=== PATIENT | female | born 1945 | race Caucasian/White ===

== ENCOUNTER → 2018-01-18 | Outpatient (CLI) | payer MEDICARE, OTHER ==
--- NOTE | 2018-01-18 14:38 | RADIOLOGY IMAGING REPORT ---
FACILITY: [facility] [place] PATIENT NAME: Nelly Chisholm : 1945 MR: [id number] V: [id number] EXAM DATE: ORDERING PHYSICIAN: BINH TUBBS TECHNOLOGIST: Location: [facility] Patient: Nelly Chisholm : 1945 Visit/Account:[id number] Date of Sevice: 01/18/2018 THYROID HISTORY: Thyroid nodules COMPARISON: None FINDINGS: SIZE: Normal. Right lobe: 4.6 x 2.1 x 2.1 cm Left lobe: 4.9 x 1.9 x 1.4 cm Isthmus: 6.5 mm PARENCHYMA: Homogeneous. NODULES: Right lobe: * In the mid to upper pole the right lobe there is a complex well-circumscribed 2 x 1.2 x 1.2 cm nod ule. * in the inferior right lobe is a solid well-circumscribed hypoechoic nodule measuring 7 mm in diam eter Left lobe: * Three subcentimeter nodules are identified in the mid to inferior pole the left lobe Isthmus: * There is a solid heterogeneous 2.5 x 1.8 x 0.8 cm hypervascular nodule along the left-sided isthmu s VASCULARITY: Within normal limits. ADDITIONAL FINDINGS: None. IMPRESSION: In the mid to upper pole the right lobe there is a 2 cm complex nodule for which ultrasound-guided fi ne-needle aspiration is recommended Left-sided isthmus there is a 2.5 cm hypervascular complex nodule for which ultrasound-guided needle aspiration is recommended REFERENCE: 2015 [place] [employer] Management Guidelines for Adult Patients with Thyroid Nodules and D ifferentiated Thyroid Cancer: The [place] [employer] Guidelines Task Force on Thyroid Nodul es and Differentiated Thyroid Cancer. SONOGRAPHIC PATTERNS: * Benign: Purely cystic nodules (no solid component); estimated risk of malignancy <1 percent; no bi opsy recommended. * Very Low Suspicion: Spongiform or partially cystic nodules without any of the sonographic features described in low, intermediate, or high suspicion patterns; estimated risk of malignancy <3 percent; consider FNA at > 2 cm (Observation without FNA is also a reasonable option). * Low Suspicion: Isoechoic or hyperechoic solid nodule, or partially cystic nodule with eccentric so lid areas, without microcalcification, irregular margin or ETE (extra-thyroidal extension), or taller than wide shape; estimated risk of malignancy 5-10 percent; recommend FNA at >1.5 cm. * Intermediate Suspicion: Hypoechoic solid nodule with smooth margins without microcalcifications, E TE (extra-thyroidal extension), or taller than wide shape; estimated risk of malignancy 10-20 percent ; recommend FNA at > 1 cm. * High Suspicion: Solid hypoechoic nodule or solid hypoechoic component of a partially cystic nodule with one or more of the following features: irregular margins (infiltrative, microlobulated), microc alcifications, taller than wide shape, rim calcifications with small extrusive soft tissue component, evidence of ETE (extra-thyroidal extension); estimated risk of malignancy >70-90 percent; recommend FNA at > 1 cm. NOTES: * Although a sonographically suspicious subcentimeter thyroid nodule without evidence of extrathyroi evert extension or sonographically suspicious lymph nodes may be observed with close sonographic follow -up rather than pursuing immediate FNA, patient age and preference may modify decision-making. A > 50% interval increase in nodule volume and/or development of new suspicious sonographic features are felt to be a valid reasons for potential re-aspiration of a nodule previously shown to have benig n FNA cytology. Report Dictated By: Carmen Vivas MD at 01/18/2018 2:31 PM Report E-Signed By: Carmen Vivas MD at 01/18/2018 2:35 PM WSN:[email or web address]
== END ==
LOC: US 01:29
PROVIDERS: ATTEND Family Medicine
DX: E04.1 Nontoxic single thyroid nodule (principal)
CPT/HCPCS: 76536

== ENCOUNTER → 2018-01-29 | Outpatient (CLI) | payer MEDICARE, OTHER ==
[~2018-01-29] MED LIST: CALC-852 PO; CELE-1 PO; CHOL10005 PO; CLON-388 PO; CRAN200C5 PO; DOXE10CA25 PO; FAMO20TA28 PO; METH-284 PO; OXYC-373 PO; TRAM-420 PO; VALS160T22 PO; VALS1TAB67 PO
[2018-01-29 14:33] LABS: PLATELET COUNT, AUTOMATED 207 K/uL (150-450)
== END ==
LOC: LAB 14:04
PROVIDERS: ATTEND Internal Medicine
DX: I10 Essential (primary) hypertension (principal); G89.29 Other chronic pain; G47.9 Sleep disorder, unspecified; E05.90 Thyrotoxicosis, unspecified without thyrotoxic crisis or storm; R79.89 Other specified abnormal findings of blood chemistry
CPT/HCPCS: 36415; 81001; 82040; 82150; 82247; 82310; 82374; 82435; 82565; 82607; 82728; 82746; 82947; 83540; 83550; 83690; 83970; 84075; 84132; 84155; 84295; 84432; 84439; 84443; 84445; 84450; 84460; 84481; 84520; 84550; 85025; 85651; 86677; 86800

== ENCOUNTER → 2018-02-02 | Outpatient (CLI) | payer MEDICARE, OTHER ==
[~2018-02-02] MED LIST changes: -METH-284 PO
== END ==
LOC: LAB 11:11
PROVIDERS: ATTEND Internal Medicine
DX: I10 Essential (primary) hypertension (principal); E05.90 Thyrotoxicosis, unspecified without thyrotoxic crisis or storm; R10.9 Unspecified abdominal pain
CPT/HCPCS: 81001

== ENCOUNTER 2018-02-06 14:55 | Outpatient (RCR) | payer MEDICARE, OTHER ==
--- NOTE | 2018-02-07 14:02 | RADIOLOGY IMAGING REPORT ---
FACILITY: [facility] PATIENT NAME: Nelly Chisholm : 1945 MR: [id number] V: [id number] EXAM DATE: ORDERING PHYSICIAN: GRACIE QUEVEDO TECHNOLOGIST: Location: [facility] [place] Patient: Nelly Chisholm : 1945 Visit/Account:[id number] Date of Sevice: 02/06/2018 Nuclear thyroid uptake and scan. HISTORY: Hyperthyroid. COMPARISON: Thyroid ultrasound 01/18/2018. 367 uCi I-123 was administered by mouth on 02/06/2018. Images of the thyroid were obtained. Thyroid uptake was calculated at 6 hours and 24 hours. FINDINGS: Focal areas of increased activity are present in the region of the upper pole of the right thyroid lo be and the lower pole of the left thyroid lobe. Six hour uptake is 22.3%. 24-hour uptake is 42.5% w hich is increased compared to the normal range of 10-30%. IMPRESSION: Hyperfunctioning nodules in the right and left thyroid lobes. Report Dictated By: Jamel Awad MD at 02/07/2018 1:51 PM Report E-Signed By: Jamel Awad MD at 02/07/2018 1:59 PM WSN:[email or web address]
[2018-02-15] MEDS ORDERED: METH-284 PO (15:05)
[2018-02-15] MEDS ORDERED: CELE-1 PO (15:05)
== END 2018-02-06 18:00 | disposition home or self-care (01) ==
LOC: NUC 14:55
PROVIDERS: ATTEND Internal Medicine
DX: E05.90 Thyrotoxicosis, unspecified without thyrotoxic crisis or storm (principal)
CPT/HCPCS: 78014; A9516

== ENCOUNTER → 2018-02-15 | Outpatient (CLI) | payer MEDICARE, OTHER ==
[~2018-02-15] MED LIST changes: +METH-284 PO
--- NOTE | 2018-02-15 16:24 | EKG ---
FACILITY: [facility] [place] PATIENT NAME: NGOC CARRILLO : [id number] MR: [id number] V: [id number] EXAM DATE: ORDERING PHYSICIAN: GRACIE QUEVEDO TECHNOLOGIST: MICHELLE Test Reason : TACHYCARDIA Blood Pressure : / mmHG Vent. Rate : 077 BPM Atrial Rate : 077 BPM P-R Int : 142 ms QRS Dur : 082 ms QT Int : 358 ms P-R-T Axes : 063 074 069 degrees QTc Int : 405 ms Normal sinus rhythm Normal ECG No previous ECGs available Referred By: MD QUEVEDO Confirmed By:
== END ==
LOC: RESP 15:53
PROVIDERS: ATTEND Internal Medicine
DX: Z02.9 Encounter for administrative examinations, unspecified (principal)

== ENCOUNTER → 2018-03-05 | Outpatient (CLI) | payer MEDICARE, OTHER ==
[2018-03-05 10:18] LABS: PLATELET COUNT, AUTOMATED 231 K/uL (150-450)
== END ==
LOC: LAB 09:39
PROVIDERS: ATTEND Internal Medicine
DX: I10 Essential (primary) hypertension (principal); E05.90 Thyrotoxicosis, unspecified without thyrotoxic crisis or storm; R63.4 Abnormal weight loss; R79.89 Other specified abnormal findings of blood chemistry
CPT/HCPCS: 36415; 82040; 82247; 82310; 82374; 82435; 82565; 82728; 82947; 83540; 83550; 84075; 84132; 84155; 84295; 84439; 84443; 84450; 84460; 84481; 84520; 85025

== ENCOUNTER 2018-03-13 12:42 | Outpatient (RCR) | payer MEDICARE, OTHER ==
[2018-02-02 13:29] VITALS: BP 126/68
--- NOTE | 2018-02-02 19:54 | ONCOLOGY CONSULTATION ---
EVENT DATE: 2017 REFERRING PHYSICIAN Dewayne Matias MD REASON FOR CONSULTATION Evaluation and management of iron overload. HISTORY OF PRESENT ILLNESS Patient is a 72-year-old female who presented with abdominal pain, decreased appetite and feeling unwell, accompanied by 10-15 pounds of weight loss for the last two to three months. She underwent EGD on January 02, 2018 which was unremarkable. She was evaluated at the emergency room in [place], [place] on December 18, 2017 because of similar complaints and chronic back pain. During her evaluation by her primary care physician in [facility], Dr. De Los Santos, and in [place] the patient was found to have high iron. On May 03, 2017 her ferritin was 569, TIBC was 260, iron was 127 and iron saturation 49%. On October 23, 2017, her serum iron was 102, TIBC was 259, iron saturation 39% and ferritin was 384. Her ferritin on January 17, 2018 was 1038 while her ferritin on January 23, 2018 was 1054. Her iron studies on January 29, 2018 showed serum iron of 34 which is low, TIBC is low at 248, iron saturation was 13.7% and ferritin was 629. 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 She was also found to have decreased TSH at 0.021, slightly elevated elevated T4 and T3, so she subsequently underwent an ultrasound of the thyroid gland which showed a 2 cm complex nodule in the right lobe, and 2.5 cm hypervascular complex nodule in the left-sided isthmus. PAST MEDICAL HISTORY 1. Thyroid nodule. 2. Hepatitis as a child. 3. Hyperlipidemia. 4. Hypertension. 5. COPD. 6. Fibromyalgia. 7. Osteoporosis. 8. Anxiety. PAST SURGICAL HISTORY 1. TMJ surgery complicated with staph infection for some time. 2. Appendectomy. 3. Left wrist surgery. 4. Kyphoplasty. 5. Tonsillectomy. 6. Hysterectomy. 7. Skin cancer removal. FAMILY HISTORY Negative for cancer, but her brother had history of iron overload and he as receiving phlebotomies. 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 She drinks socially. Denies any abuse of illicit drugs. CURRENT MEDICATIONS 1. Valsartan 160 mg daily. 2. Oxycodone/APAP 5/325 one tablet q.6 hourly p.r.n. 3. Calcium carbonate, vitamin D3 one tablet each. 4. Cranberry extract. 5. Vitamin D3 1000 units tablet two tablets daily. 6. Pepcid 20 mg orally daily. 7. Clonazepam 0.5 mg twice daily. 8. Tramadol 50 mg q.8 hourly p.r.n. for pain. ALLERGIES 1. AMOXICILLIN. 2. CEPHALOSPORINS. 3. SULFA which causes skin blisters. 4. NITROFURANTOIN caused also allergy. 5. CODEINE causing allergy. REVIEW OF SYSTEMS CONSTITUTIONAL: No fever. She has chills, sweating and loss of appetite. No recent infection. HEENT: Ears: No tinnitus or hearing problem. Nose: No nasal discharge or epistaxis. Throat: No sore throat or mouth ulcers. Eyes: No diplopia or visual changes. RESPIRATORY: She has shortness of breath. No cough, expectoration or hemoptysis. CARDIOVASCULAR: No chest pain, orthopnea, or paroxysmal nocturnal dyspnea (PND) . No edema. No palpitations. GASTROINTESTINAL: She has nausea. No vomiting. No diarrhea or constipation. No change in bowel movements. No heartburn or swallowing difficulties. She has left-sided abdominal pain and epigastric pain. No jaundice. No hematemesis , melena or rectal bleeding. GENITOURINARY: No hematuria or dysuria. MUSCULOSKELETAL: She has osteoporosis and fibromyalgia with generalized bone pains. NEUROLOGICAL: No tingling or numbness in the hands or feet. She has headache. No convulsions. HEMATOLOGIC/LYMPHATIC: No bleeding or easy bruising. She is weak, tired and fatigued. No enlarged lymph nodes. SKIN: No skin rash or lumps. PSYCHIATRIC: No anxiety or depression. PHYSICAL EXAMINATION GENERAL: Looks stable. Well-developed, well-nourished, and in no acute distress. VITAL SIGNS: Blood pressure 126/68, pulse 84 per minute, respirations 16 per minute, temperature 97.8, pulse ox 95% on room air. HEENT: Head: Atraumatic. No sinus tenderness to palpation. Eyes: No icterus or conjunctivitis. Mouth and Throat: No oral thrush or mucositis. NECK: Supple. No cervical or supraclavicular lymphadenopathy. LUNGS: Clear to auscultation and percussion bilaterally. HEART: Regular rate and rhythm. No gallops, murmurs, clicks or rubs. ABDOMEN: Soft and lax. No tenderness. No hepatosplenomegaly. No masses. EXTREMITIES: No cyanosis, clubbing or edema. LYMPHATICS: No peripheral lymphadenopathy. NEUROLOGICAL: Conscious, alert and oriented times three. No focal motor or sensory deficits. PSYCHIATRIC: Mood and affect appear normal. SKIN: No skin rash, bruise or purpuric eruption. ASSESSMENT 1. Iron overload. Looks like it is due to an underlying inflammatory condition given that her last iron studies on January 29, 2018 showed low serum iron at 34, low TIBC at 248, iron saturation 13.7 and ferritin was 629. If the patient will have iron overload from hemochromatosis I am expecting her serum iron will be high. With her complex thyroid nodules, I am planning to proceed with ultrasound-guided biopsy of the two nodules in her thyroid gland to be sure the patient does not have a malignant underlying disease which could explain the underlying inflammatory condition, despite the fact she may have multinodular goiter with hypothyroidism as per thyroid investigation done in [place]. I talked to the patient and her regarding that. They are agreeable to proceed with ultrasound biopsy for further evaluation. If the patient will not prove to have malignancy requiring treatment with surgical resection, I am consider phlebotomy in the future to deplete her high ferritin. 2. Thyroid nodules. I am planning to proceed with ultrasound-guided biopsy of the two nodules, the one in the right lobe and the one in the left side isthmus. Further evaluation and management will depend on the results of that test. 3. Fibromyalgia. 4. Osteoporosis. 5. Hypertension on Diovan. PLAN 1. Ultrasonographic-guided biopsy of the two thyroid nodules. 2. Patient to return after the above for further evaluation and management. 3. Consider phlebotomy for the iron overload. 4. Patient to contact us for any new concern or complaints. AKANKSHAD
[2018-02-07 08:51] VITALS: BP 131/76
[2018-02-07 09:08] LABS: INR 1.07
--- NOTE | 2018-02-08 12:11 | RADIOLOGY IMAGING REPORT ---
[facility] PATIENT NAME: Nelly Chisholm : 1945 MR: [id number] V: [id number] EXAM DATE: ORDERING PHYSICIAN: JENNIFER ARMSTRONG TECHNOLOGIST: Location: [facility] [place] Patient: Nelly Chisholm : 1945 Visit/Account:[id number] Date of Sevice: 02/08/2018 Exam: Ultrasound guided thyroid biopsy. Indication: 2 indeterminate nodules in the thyroid, with 1 right side of the isthmus, and the other i n the right thyroid lobe. Comparison: Thyroid ultrasound 01/18/2018. Findings: Prior to the exam, risks and benefits of a 2 thyroid nodule biopsies were discussed and inf ormed consent was obtained. Patient was placed supine on the gurney and the neck was prepped and drap ed in normal sterile fashion. 1% buffered lidocaine was locally injected for analgesia. Using ultrasound guidance, 25-gauge needle was used for 4 FNA samples in both nodules.. There were no immediate post procedure complications and the patient tolerated the procedure. Impression: Ultrasound-guided fine-needle aspiration of 2 thyroid nodules. Report Dictated By: Ronnell Calderón at 02/08/2018 12:07 PM Report E-Signed By: Ronnell Calderón at 02/08/2018 12:08 PM WSN:[email or web address]
[2018-02-09 13:59] VITALS: BP 118/70
--- NOTE | 2018-02-09 19:09 | ONCOLOGY FOLLOW UP NOTE ---
EVENT DATE: February 09, 2018 DIAGNOSES 1. Iron overload. 2. Thyroid nodules with nodular goiter. 3. Fibromyalgia. 4. Osteoporosis. 5. Hypertension. CHIEF COMPLAINT Patient is here today for followup of her iron overload. HEMATOLOGY/ONCOLOGY HISTORY Patient is a 72-year-old female who presented with abdominal pain, decreased appetite and feeling unwell, accompanied by 10-15 pounds of weight loss for the last two to three months. She underwent EGD on January 02, 2018 which was unremarkable. She was evaluated at the emergency room in [place], [place] on December 18, 2017 because of similar complaints and chronic back pain. During her evaluation by her primary care physician in [facility], Dr. De Los Santos, and in [place] the patient was found to have high iron. On May 03, 2017 her ferritin was 569, TIBC was 260, iron was 127 and iron saturation 49%. On October 23, 2017, her serum iron was 102, TIBC was 259, iron saturation 39% and ferritin was 384. Her ferritin on January 17, 2018 was 1038 while her ferritin on January 23, 2018 was 1054. Her iron studies on January 29, 2018 showed serum iron of 34 which is low, TIBC is low at 248, iron saturation was 13.7% and ferritin was 629. 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 She was also found to have decreased TSH at 0.021, slightly elevated elevated T4 and T3, so she subsequently underwent an ultrasound of the thyroid gland which showed a 2 cm complex nodule in the right lobe, and 2.5 cm hypervascular complex nodule in the left-sided isthmus. Patient has had left thyroid, left isthmus biopsy and cytology and right superior thyroid cytology done on February 07, 2018, and the pathology came negative for malignancy, but consistent with a nodular goiter. HISTORY OF PRESENT ILLNESS Patient is here today for followup of her iron overload. Her appetite is better this week than last week. She is short winded. She has nausea. She has generalized joint pains. She has occasional headache. She is weak, tired and fatigued. PAST MEDICAL HISTORY 1. Thyroid nodule. 2. Hepatitis as a child. 3. Hyperlipidemia. 4. Hypertension. 5. COPD. 6. Fibromyalgia. 7. Osteoporosis. 8. Anxiety. PAST SURGICAL HISTORY 1. TMJ surgery complicated with staph infection for some time. 2. Appendectomy. 3. Left wrist surgery. 4. Kyphoplasty. 5. Tonsillectomy. 6. Hysterectomy. 7. Skin cancer removal. FAMILY HISTORY Negative for cancer, but her brother had history of iron overload and he as receiving phlebotomies. 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 She drinks socially. Denies any abuse of illicit drugs. CURRENT MEDICATIONS 1. Valsartan 160 mg daily. 2. Oxycodone/APAP 5/325 one tablet q.6 hourly p.r.n. 3. Calcium carbonate, vitamin D3 one tablet each. 4. Cranberry extract. 5. Vitamin D3 1000 units tablet two tablets daily. 6. Pepcid 20 mg orally daily. 7. Clonazepam 0.5 mg twice daily. 8. Tramadol 50 mg q.8 hourly p.r.n. for pain. ALLERGIES 1. AMOXICILLIN. 2. CEPHALOSPORINS. 3. SULFA which causes skin blisters. 4. NITROFURANTOIN caused also allergy. 5. CODEINE causing allergy. REVIEW OF SYSTEMS CONSTITUTIONAL: Her loss of appetite is getting better. HEENT: Ears: No tinnitus or hearing problem. Nose: No nasal discharge or epistaxis. Throat: No sore throat or mouth ulcers. Eyes: No diplopia or visual changes. RESPIRATORY: She has exertional shortness of breath. No cough, expectoration or hemoptysis. CARDIOVASCULAR: No chest pain, orthopnea, or paroxysmal nocturnal dyspnea (PND) . No edema. No palpitations. GASTROINTESTINAL: She has occasional nausea. No vomiting. No diarrhea or constipation. No change in bowel movements. No heartburn or swallowing difficulties. She has left-sided abdominal pain and epigastric pain. No jaundice. No hematemesis, melena or rectal bleeding. GENITOURINARY: No hematuria or dysuria. MUSCULOSKELETAL: She has generalized pain due to arthritis. NEUROLOGICAL: No tingling or numbness in the hands or feet. She has occasional headache. No convulsions. HEMATOLOGIC/LYMPHATIC: No bleeding or easy bruising. She is weak and fatigued. No enlarged lymph nodes. SKIN: No skin rash or lumps. PSYCHIATRIC: No anxiety or depression. PHYSICAL EXAMINATION GENERAL: Looks stable. Well-developed, well-nourished, and in no acute distress. VITAL SIGNS: Blood pressure 118/70, pulse 82 per minute, respirations 16 per minute, temperature 97.1, pulse ox 91% on room air. HEENT: Head: Atraumatic. No sinus tenderness to palpation. Eyes: No icterus or conjunctivitis. Mouth and Throat: No oral thrush or mucositis. NECK: Supple. No cervical or supraclavicular lymphadenopathy. LUNGS: Clear to auscultation and percussion bilaterally. HEART: Regular rate and rhythm. No gallops, murmurs, clicks or rubs. ABDOMEN: Soft and lax. No tenderness. No hepatosplenomegaly. No masses. EXTREMITIES: No cyanosis, clubbing or edema. LYMPHATICS: No peripheral lymphadenopathy. NEUROLOGICAL: Conscious, alert and oriented times three. No focal motor or sensory deficits. PSYCHIATRIC: Mood and affect appear normal. SKIN: No skin rash, bruise or purpuric eruption. DIAGNOSTIC DATA Biopsy and cytology of the left thyroid, left isthmus and right superior thyroid cytology done on February 07, 2018 was negative for malignancy and consistent with nodular goiter. ASSESSMENT 1. Iron overload likely due to underlying inflammatory condition. Her iron studies done January 29, 2018 showed serum iron 34, TIBC 248, iron saturation 13.7% and ferritin 629. With her complex thyroid nodules patient had ultrasound- guided biopsy of the right thyroid nodule and left thyroid isthmus, and the cytology came back negative for malignancy, but was consistent with nodular goiter. It seems from her iron studies that hemochromatosis is unlikely. I am planning to do two phlebotomy sessions, and I am planning to see her in a month from now with repeat iron studies and CBC at that time. 2. Thyroid nodules due to nodular goiter as per cytology by ultrasound-guided biopsy of the thyroid nodules done on February 07, 2018. 3. Fibromyalgia. 4. Osteoporosis. 5. Hypertension on Diovan. PLAN 1. Phlebotomize 350 to 500 mL of blood q.2 weeks. 2. Patient to return in one month with CBC, iron studies with ferritin. 3. Patient to contact us for any new concern or complaints. [facility]
[2018-02-27 11:11] VITALS: BP 134/60
[2018-02-27 11:17] LABS: PLATELET COUNT, AUTOMATED 243 K/uL (150-450)
[2018-02-27 11:56] VITALS: BP 126/97
[2018-03-12 13:55] LABS: PLATELET COUNT, AUTOMATED 243 K/uL (150-450)
[2018-03-12 14:00] VITALS: BP 121/86
[~2018-03-13 12:42] MED LIST changes: +ESCI10TA8 PO; +MIRT-1 PO; +PANT40TA65 PO
--- NOTE | 2018-03-13 17:45 | Oncology Note ---
Nelly Adamson is a Patient is a 72-year-old female who has history of Iron overload and Thyroid nodules.. Thyroid nodules. 3. Fibromyalgia. 4. Osteoporosis. 5. Hypertension on Diovan. Patient was last seen by Dr. Moe Simmons on January 2018 she had workup Labs drawn on 03/12/2018 she was supposed to come today for therapeutic phlebotomy if clinically indicated total ferritin Diagnostic Labs on 02/09/2018 reveal. WBC 5.5, hemoglobin 14.8, hematocrit 43.5 , platelet count 243, ANC 3.2, CMP, are totally normal FERRITIN LAB VALUES -01/29/18 629 -03/05/18 254 - 02/2518 207 I spoke to patient's Mr. Tom over phone telephone number [phone] where informed that ferritin levels were within therapeutic limits and no clinical indication for therapeutic phlebotomy. Patient and were informed to follow-up on April 08, 2018 approximately the same time that you have an appointment PCP Patient to f/u in 4 weeks for CMP, CBC, ferritin, and aim at same Day labs and treatment if clinically indicated. Belkis Mcnair facilitate appointment. BRENDA GARCIA RN [facility], ONC Mar 13, 2018 17:45
[2018-03-15] MEDS ORDERED: DOXE10CA25 PO (15:12)
[2018-03-17] MEDS ORDERED: SUCCINYLCHOL CHL 200MG/10ML VL ONE (10:09)
[2018-03-17] MEDS ORDERED: PROPOFOL EMUL(*) 10MG/ML 20 ML 0 ML ONE (10:09)
[2018-03-17] MEDS ORDERED: PROPOFOL EMUL(*) 10MG/ML 20 ML 40 ML ONE (10:46)
[2018-03-17] MEDS ORDERED: DEXAMETHASONE SOD 4 MG/ML VIAL ONE (11:00)
[2018-03-17] MEDS ORDERED: ONDANSETRON 4 MG/2 ML VIAL ONE (11:05)
[2018-03-20] MEDS ORDERED: SUCR1TAB51 PO (10:32)
[2018-03-20] MEDS ORDERED: PANT40TA65 PO (10:32)
[2018-03-20] MEDS ORDERED: CLON-331 PO (10:44)
[2018-03-30] MEDS ORDERED: PANT40TA65 PO (12:59)
[2018-04-02] MEDS ORDERED: SUCR1TAB51 PO (11:27)
[2018-04-05] MEDS ORDERED: LOSA100T67 PO (16:54)
[2018-04-11] MEDS ORDERED: CLON-331 PO (14:15)
[2018-04-11] MEDS ORDERED: TRAM-420 PO (14:15)
== END 2018-04-12 13:48 | disposition home or self-care (01) ==
LOC: ONC 12:42
PROVIDERS: ATTEND Internal Medicine Hematology
DX: E83.10 Disorder of iron metabolism, unspecified (principal); E04.2 Nontoxic multinodular goiter; M79.7 Fibromyalgia; M81.0 Age-related osteoporosis without current pathological fracture; I10 Essential (primary) hypertension; Z87.891 Personal history of nicotine dependence; R11.0 Nausea; R06.02 Shortness of breath; R10.13 Epigastric pain; R53.1 Weakness; R53.83 Other fatigue
CPT/HCPCS: 36415; 76942; 82728; 83540; 83550; 85025; 85610; 85730; 88104; 88172; 99195; G0463; 10022; 81001; 99202; 99212; J0330; J1100; J2405; J2704

== ENCOUNTER → 2018-03-14 | Outpatient (CLI) | payer MEDICARE, OTHER ==
[~2018-03-14] MED LIST changes: +BARIUM SULFATE 148 GM POWDER ONE; +BARIUM SULFATE 176 GM BTL PO ONE; +BARIUM SULFATE 240 ML ORAL SUS (NECTAR) ONE; +BARIUM SULFATE 340 GM POWD ONE
--- NOTE | 2018-03-14 16:02 | RADIOLOGY IMAGING REPORT ---
FACILITY: [facility] [place] PATIENT NAME: Nelly Chisholm : 1945 MR: [id number] V: [id number] EXAM DATE: ORDERING PHYSICIAN: GRACIE QUEVEDO TECHNOLOGIST: Location: [facility] Patient: Nelly Chisholm : 1945 Visit/Account:[id number] Date of Sevice: 03/14/2018 Exam type: UPPER GI W/SMALL BOWEL SERIES History: Dysphasia, nausea, appetite changes Comparison: None. Findings: Double contrast upper GI series was performed with thick and thin barium and air contrast. No signif icant gastroesophageal reflux was observed. There was however a high-grade narrowing in the distal e sophagus with failure of passage of a 12 mm barium tablet. The stomach duodenal bulb and duodenal C- loop appeared unremarkable. Barium was followed throughout the small bowel to the terminal ileum. T ransit time to the colon was three hours and 15 minutes. No definite mucosal abnormality of the smal l bowel or terminal ileum was identified there is no evidence of bowel dilatation the fluoroscopy dos e area product was 824.88 micro-Tobias per meter squared IMPRESSION: 1. High-grade narrowing at the distal esophagus with failure of passage of a 12 mm barium tablet. Small bowel appear grossly unremarkable transit time to the colon of three hours and 15 minutes Report Dictated By: Carmen Vivas MD at 03/14/2018 3:53 PM Report E-Signed By: Carmen Vivas MD at 03/14/2018 4:00 PM WSN:[email or web address]
== END ==
LOC: RAD 01:29
PROVIDERS: ATTEND Internal Medicine
DX: R13.19 Other dysphagia (principal)
CPT/HCPCS: 74245

== ENCOUNTER 2018-03-17 06:43 | Inpatient (IN) | payer MEDICARE, OTHER ==
[~2018-03-17] VITALS: Ht 160 cm; Wt 44.9 kg
[2018-03-17] VITALS (13 sets, daily range): BP systolic 119–177; BP diastolic 66–103
[~2018-03-17 06:43] MED LIST changes: -CLON-298 PO; -SUCR1TAB51 PO
[2018-03-17] MEDS ORDERED: EMS NS 0.9%(*) 1000 ML BAG 1,000 ML IV ONE (07:05)
--- NOTE | 2018-03-17 07:08 | ER Report ---
History and Physical Time Seen By MD: 07:08 Hx. of Stated Complaint: nausea, weak, new diagnosis of hypothyroid, narrow esoph HPI/ROS CHIEF COMPLAINT: Weakness; weight loss HISTORY OF PRESENT ILLNESS: Patient is a 72-year-old female who lives in [place] during where time has returned to [place] for the summer. The past few months she's been experiencing symptoms of early satiety and nausea without emesis. She states decreased appetite and since November or December has lost approximately 17 pounds. Patient states that when she eats, she feels as if she can't swallow . Further she gets instantly nauseous and wants to throw up but does not. Patient actually was seen multiple times in the emergency department in [place] for similar symptoms. She had an endoscopy that was reportedly "negative". She also had CT scan of the abdomen and pelvis which also was reported to be unremarkable. She followed up with Dr. Michel . Nani. She was found to have a slightly elevated ferritin levels which she required phlebotomy 4. She is being followed by oncology. Further she was found to have hyperthyroidism and is currently taking methimazole last dose was last evening. She had an upper GI that was performed on March 14 which apparently showed esophageal narrowing. She is scheduled to see GI Liya Villar but that is not for over a month she apparently has also been trying to see Dr. Unger but the earliest appointment for consultation was April 02. The electronic medical record was reviewed and I have copied the note from her visit with Dr. Oscar that occurred on March 15: Patient has a history of anxiety and depression and also difficulty sleeping she was on clonazepam that she was in the process of discontinuing she requested to try Remeron and was prescribed 15 mg half tablet every night and the patient she tried to take 1/8 of a tablet but is still was completely sleepy during the daytime and was unable to get out of bed she does not wish to continue with that. She has used doxepin before and she felt that it worked well for her and she wishes to use it for sleeping she is currently using clonazepam 0.5 mg every night and has been advised to stop that patient was recently found to have hyperthyroidism with TSH less than 0.02 free T4 2 0.20 and free T3 5 0.8 thyroglobulin was high at 37.6 patient was also found to have thyroid nodules and has undergone thyroid biopsy which was negative for underlying malignancy Thyroid uptake scan done on 02/07/18 has shown focal areas of increased activity in the region of upper pole of right thyroid and lower pole of left thyroid 6 hour uptake was 22.3% and 24-hour uptake was 42.5% which was increased compared to the normal range of 10-30% 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 she has been complaining of weight loss and palpitations we discussed different treatment options at length including surgery and radioactive iodine and anti- thyroid medications patient was placed on methimazole 10 mg every day about 3 weeks ago she has also been referred to tank washer but is waiting for the appointment since starting methimazole her free T4 and free T3 have returned to normal TSH is still low at 0.02 patient also mentioned that she continues to have some palpitations and is very concerned about the weight loss According to patient she has been having abdominal pain decreased appetite and not feeling well accompanied by 10-15 pounds of weight loss for last 2-3 months. Patient lives in [facility] in the wintertime and has just returned here for the summer. She does mention that she recently underwent EGD on 01/02/18 which was unremarkable she was advised to use Pepcid every 12 hours she was also seen in the emergency room in [facility] on 12/18/17 because of the similar complaints she also has chronic back pain and has been on chronic pain management she did undergo MRI of the lumbosacral spine and thoracic spine recently and is currently following the pain management Center in [facility]. She also underwent CT scan of the abdomen and pelvis on which was unremarkable according to patient she feels bloated sometimes and has early satiety she also mentioned that sometimes it is difficult to swallow food especially in the neck region and upper chest region her last colonoscopy was about 3 years ago and it was unremarkable the records are not available patient underwent upper GI on it and it has shown a high-grade narrowing at the distal esophagus with failure of passage of a 12 mm barium tablet small balls were unremarkable patient has already been referred to senior accounting specialist in [place] but does not have an appointment until the end of March. On her last visit she was advised to start pantoprazole 40 mg daily instead of Pepcid patient was a bit anxious since she has had some problems with different proton pump inhibitors in the past Patient Is also found to have elevated ferritin and has undergone phlebotomy 2 her iron levels were never elevated most recent labs have shown ferritin of 254 she is following up with a senior web architect Regarding chronic pain management she is currently taking tramadol, Celebrex and oxycodone on her last visit she wanted to use oxycodone but has decided that she would like to continue with tramadol and will use oxycodone only very occasionally Past medical history significant for hypertension and is currently on Diovan 160 mg REVIEW OF SYSTEMS: Constitutional: No fever, no chills. Weight loss, generalized fatigue Eyes: No discharge. ENT: No sore throat. Cardiovascular: No chest pain, no palpitations. Respiratory: No cough, no shortness of breath. Gastrointestinal: Generalized abdominal pain, nausea without vomiting Genitourinary: No hematuria. Musculoskeletal: History of chronic back pain Skin: No rashes. Neurological: No headache. Allergies: Coded Allergies: Cephalosporins (Verified Allergy, Mild, 03/17/18) Penicillins (Verified Allergy, Mild, 03/17/18) codeine (Verified Allergy, Mild, 03/17/18) nitrofurantoin (Verified Allergy, Mild, 03/17/18) Home Meds Active Scripts Doxepin Hcl (DOXEPIN HCL) 10 Mg Capsule, 1-2 MG PO QHS Y for difficulty sleeping , #30 CAPSULE 3 Refills Prov:GRACIE QUEVEDO MD 03/15/18 Tramadol Hcl (TRAMADOL HCL) 50 Mg Tablet, 50 MG PO TID Y for pain, #90 TAB 1 Refill Prov:GRACIE QUEVEDO MD 03/12/18 Oxycodone Hcl/Acetaminophen (OXYCODONE-ACETAMINOPHEN 5-325) 1 Each Tablet, 1 EACH PO Q6H Y for PAIN, #40 TAB Prov:GRACIE QUEVEDO MD 03/07/18 Pantoprazole Sodium (PANTOPRAZOLE SODIUM) 40 Mg Tablet.dr, 40 MG PO QDAY, #30 TAB.SR 6 Refills Prov:GRACIE QUEVEDO MD 03/07/18 Methimazole (METHIMAZOLE) 10 Mg Tablet, 10 MG PO QDAY, #30 TAB 3 Refills Prov:GRACIE QUEVEDO MD 02/15/18 Celecoxib (CELEBREX) 200 Mg Capsule, 200 MG PO QDAY Y for pain, #30 CAPSULE 4 Refills Prov:GRACIE QUEVEDO MD 02/15/18 Valsartan (DIOVAN) 160 Mg Tablet, 160 MG PO DIRECTED, #30 TAB 2 Refills Prov:GRACIE QUEVEDO MD 01/29/18 Reported Medications Calcium Carbonate/Vitamin D3 (CALCIUM + VITAMIN D TABLET) 1 Each Tablet, 1 EACH PO 01/29/18 Cholecalciferol (Vitamin D3) (VITAMIN D3) 1,000 Unit Tablet, 2000 UNIT PO, TAB 01/29/18 Discontinued Reported Medications Cranberry Extract (CRANBERRY) Unknown Strength Capsule, PO BID, CAPSULE 01/29/18 Clonazepam (CLONAZEPAM) 0.5 Mg Tab.rapdis, 0.5 MG PO QDAY Y for pain, #6 TAB 01/29/18 Discontinued Scripts Mirtazapine (REMERON) 15 Mg Tablet, 0.5-1 TAB PO QHS, #30 TAB 3 Refills Prov:GRACIE QUEVEDO MD 03/12/18 Mirtazapine (REMERON) 15 Mg Tablet, 15 MG PO QHS, #30 TAB 3 Refills Prov:GRACIE QUEVEDO MD 03/12/18 Escitalopram Oxalate (ESCITALOPRAM OXALATE) 10 Mg Tablet, 10 MG PO QDAY, #30 TAB 3 Refills Prov:GRACIE QUEVEDO MD 03/07/18 Famotidine (PEPCID) 20 Mg Tablet, 20 MG PO BID, #10 TAB Prov:GRACIE QUEVEDO MD 03/07/18 Past Medical/Surgical History Past medical history for COPD, fibromyalgia, osteoporosis past surgical history for tonsillectomy, appendectomy, colonoscopy in 2016, hysterectomy Smoking Status: Former Smoker Hx Substance Use Disorder: No Hx Alcohol Use: No Constitutional Vital Sign - Last 24 Hours 03/17/18 03/17/18 03/17/18 03/17/18 06:48 06:50 06:58 07:13 Temp 98.2 Pulse 74 71 76 Resp 16 33 18 B/P (MAP) 137/92 137/92 (107) Pulse Ox 95 93 96 O2 Delivery Room Air 03/17/18 03/17/18 03/17/18 03/17/18 07:15 07:28 07:30 07:34 Pulse 72 Resp 13 B/P (MAP) 138/84 (102) 133/86 (102) Pulse Ox 95 O2 Flow Rate 2.0 03/17/18 03/17/18 03/17/18 03/17/18 07:45 07:50 08:00 08:05 Pulse 80 84 Resp 15 8 B/P (MAP) 130/85 (100) 149/82 (104) 03/17/18 03/17/18 03/17/18 03/17/18 08:15 08:20 08:30 08:35 Pulse 85 ??? Resp 15 B/P (MAP) 145/85 (105) ???/??? (1665) Pulse Ox 98 03/17/18 03/17/18 03/17/18 03/17/18 08:46 08:50 09:00 09:05 Pulse 82 75 B/P (MAP) 139/84 (102) 136/84 (101) Pulse Ox 95 96 03/17/18 03/17/18 03/17/18 03/17/18 09:15 09:20 09:25 09:30 Pulse 78 78 B/P (MAP) 136/83 (100) 132/87 (102) Pulse Ox 97 96 03/17/18 03/17/18 03/17/18 03/17/18 09:40 09:45 09:55 10:00 Pulse 77 78 B/P (MAP) 134/88 (103) 153/91 (111) Pulse Ox 97 96 03/17/18 03/17/18 10:10 10:15 Pulse 72 B/P (MAP) 143/87 (105) Pulse Ox 97 Intake and Output 03/17/18 03/17/18 03/18/18 15:00 23:00 07:00 Intake Total 1050 ml Balance 1050 ml Physical Exam General/Constitutional: Patient is awake, alert, nontoxic and in no acute respiratory distress. Thin appearing Head: Normocephalic and atraumatic. Eyes: Conjunctival clear, Pupils are equal and reactive to light. Extraocular muscles are intact and symmetrical. Sclera are clear and anicteric. Ears:External canals are clear. Tympanic membranes are clear with normal landmarks and light reflex. Nares: No rhinorrhea or bleeding. Turbinates are pink and moist. Oropharyngeal: Mucous membranes are moist. There is no pharyngeal erythema or exudate. There are no palatal petechiae. Uvula is midline and symmetrical. Neck: Supple, no adenopathy. Cardiovascular: Heart is regular rate and rhythm without audible murmurs, rubs or gallops. Pulmonary: Lungs are clear to auscultation bilaterally. There are no wheezes, rales, or rhonchi. Chest rise is symmetrical Abdomen: Diffuse tenderness no guarding or peritoneal signs Extremities: No gross deformities, No peripheral cyanosis. Able to move all 4 extremities. Neuro: Alert and oriented X3, Skin: No rashes, skin is warm dry and well perfused. Medical Decision Making Data Points Result Diagram: 03/17/18 0630 03/17/18 0630 Laboratory Hematology Test 03/17/18 06:30 03/17/18 08:50 Red Blood Count 4.76 M/uL (4.17-5.56) Mean Corpuscular Volume 94.8 fL (80.0-96.0) Mean Corpuscular Hemoglobin 32.5 pg (26.0-33.0) Mean Corpuscular Hemoglobin Concent 34.3 g/dL (32.0-36.0) Red Cell Distribution Width 13.7 % (11.5-14.5) Mean Platelet Volume 8.6 fL (7.2-11.1) Neutrophils (%) (Auto) 68.8 % (39.4-72.5) Lymphocytes (%) (Auto) 23.4 % (17.6-49.6) Monocytes (%) (Auto) 5.7 % (4.1-12.4) Eosinophils (%) (Auto) 1.5 % (0.4-6.7) Basophils (%) (Auto) 0.6 % (0.3-1.4) Nucleated RBC Relative Count (auto) 0.1 /100WBC Neutrophils # (Auto) 4.7 K/uL (2.0-7.4) Lymphocytes # (Auto) 1.6 K/uL (1.3-3.6) Monocytes # (Auto) 0.4 K/uL (0.3-1.0) Eosinophils # (Auto) 0.1 K/uL (0.0-0.5) Basophils # (Auto) 0.0 K/uL (0.0-0.1) Nucleated RBC Absolute Count (auto) 0.01 K/uL Sodium Level 143 mmol/L (137-145) Potassium Level 3.5 mmol/L (3.5-5.0) Chloride Level 105 mmol/L (98-107) Carbon Dioxide Level 23 mmol/L (22-31) Blood Urea Nitrogen 13 mg/dl (7-18) Creatinine 0.90 mg/dl (0.52-1.04) Glomerular Filtration Rate Calc > 60.0 Random Glucose 98 mg/dl (75-110) Calcium Level 10.5 mg/dl (8.4-10.2) Total Bilirubin 0.7 mg/dl (0.2-1.3) Aspartate Amino Transf (AST/SGOT) 18 U/L (0-35) Alanine Aminotransferase (ALT/SGPT) 25 U/L (0-56) Alkaline Phosphatase 78 U/L (0-126) Total Protein 7.3 g/dl (6.3-8.2) Albumin 4.4 g/dl (3.5-5.0) Lipase 106 U/L (23-300) Helicobacter pylori IgG Antibody Negative (NEGATIVE) Urine Color Straw Urine Clarity Clear Urine pH 5.0 pH (4.8-9.5) Urine Specific [place] 1.009 Urine Protein Negative mg/dL (NEGATIVE) Urine Glucose (UA) Negative mg/dL (NEGATIVE) Urine Ketones 20 mg/dL (NEGATIVE) Urine Blood Negative (NEGATIVE) Urine Nitrite Negative (NEGATIVE) Urine Bilirubin Negative (NEGATIVE) Urine Urobilinogen Negative mg/dL (0.2-1.9) Urine Leukocyte Esterase Negative (NEGATIVE) Urine RBC None /HPF (0-2/HPF) Urine WBC <1 /HPF (0-5/HPF) Urine Squamous Epithelial Cells None /LPF (</=FEW) Urine Transitional Epithelial Cells Few /LPF (NONE-FEW) Urine Bacteria Negative /HPF (NONE-FEW) Urine Mucus None /HPF (NONE-FEW) Chemistry Test 03/17/18 06:30 03/17/18 08:50 White Blood Count 6.8 k/uL (4.5-11.0) Red Blood Count 4.76 M/uL (4.17-5.56) Hemoglobin 15.5 g/dL (12.0-16.0) Hematocrit 45.2 % (34.0-47.0) Mean Corpuscular Volume 94.8 fL (80.0-96.0) Mean Corpuscular Hemoglobin 32.5 pg (26.0-33.0) Mean Corpuscular Hemoglobin Concent 34.3 g/dL (32.0-36.0) Red Cell Distribution Width 13.7 % (11.5-14.5) Platelet Count 223 K/uL (150-450) Mean Platelet Volume 8.6 fL (7.2-11.1) Neutrophils (%) (Auto) 68.8 % (39.4-72.5) Lymphocytes (%) (Auto) 23.4 % (17.6-49.6) Monocytes (%) (Auto) 5.7 % (4.1-12.4) Eosinophils (%) (Auto) 1.5 % (0.4-6.7) Basophils (%) (Auto) 0.6 % (0.3-1.4) Nucleated RBC Relative Count (auto) 0.1 /100WBC Neutrophils # (Auto) 4.7 K/uL (2.0-7.4) Lymphocytes # (Auto) 1.6 K/uL (1.3-3.6) Monocytes # (Auto) 0.4 K/uL (0.3-1.0) Eosinophils # (Auto) 0.1 K/uL (0.0-0.5) Basophils # (Auto) 0.0 K/uL (0.0-0.1) Nucleated RBC Absolute Count (auto) 0.01 K/uL Glomerular Filtration Rate Calc > 60.0 Calcium Level 10.5 mg/dl (8.4-10.2) Total Bilirubin 0.7 mg/dl (0.2-1.3) Aspartate Amino Transf (AST/SGOT) 18 U/L (0-35) Alanine Aminotransferase (ALT/SGPT) 25 U/L (0-56) Alkaline Phosphatase 78 U/L (0-126) Total Protein 7.3 g/dl (6.3-8.2) Albumin 4.4 g/dl (3.5-5.0) Lipase 106 U/L (23-300) Helicobacter pylori IgG Antibody Negative (NEGATIVE) Urine Color Straw Urine Clarity Clear Urine pH 5.0 pH (4.8-9.5) Urine Specific [place] 1.009 Urine Protein Negative mg/dL (NEGATIVE) Urine Glucose (UA) Negative mg/dL (NEGATIVE) Urine Ketones 20 mg/dL (NEGATIVE) Urine Blood Negative (NEGATIVE) Urine Nitrite Negative (NEGATIVE) Urine Bilirubin Negative (NEGATIVE) Urine Urobilinogen Negative mg/dL (0.2-1.9) Urine Leukocyte Esterase Negative (NEGATIVE) Urine RBC None /HPF (0-2/HPF) Urine WBC <1 /HPF (0-5/HPF) Urine Squamous Epithelial Cells None /LPF (</=FEW) Urine Transitional Epithelial Cells Few /LPF (NONE-FEW) Urine Bacteria Negative /HPF (NONE-FEW) Urine Mucus None /HPF (NONE-FEW) Urinalysis Test 03/17/18 08:50 Urine Color Straw Urine Clarity Clear Urine pH 5.0 pH (4.8-9.5) Urine Specific [place] 1.009 Urine Protein Negative mg/dL (NEGATIVE) Urine Glucose (UA) Negative mg/dL (NEGATIVE) Urine Ketones 20 mg/dL (NEGATIVE) Urine Blood Negative (NEGATIVE) Urine Nitrite Negative (NEGATIVE) Urine Bilirubin Negative (NEGATIVE) Urine Urobilinogen Negative mg/dL (0.2-1.9) Urine Leukocyte Esterase Negative (NEGATIVE) Urine RBC None /HPF (0-2/HPF) Urine WBC <1 /HPF (0-5/HPF) Urine Squamous Epithelial Cells None /LPF (</=FEW) Urine Transitional Epithelial Cells Few /LPF (NONE-FEW) Urine Bacteria Negative /HPF (NONE-FEW) Urine Mucus None /HPF (NONE-FEW) EKG/Imaging Imaging FACILITY: [facility] PATIENT NAME: Nelly Chisholm : 1945 MR: [id number] V: [id number] EXAM DATE: ORDERING PHYSICIAN: MISHA TEMPLETON TECHNOLOGIST: Location: [facility] [place] Patient: Nelly Chisholm : 1945 Visit/Account:[id number] Date of Sevice: 03/17/2018 ABDOMEN/PELVIS WITH CONTRAST COMPARISONS: August 10, 2010, report ADDITIONAL PERTINENT HISTORY: Abdominal pain TECHNIQUE: Multiple axial images were obtained from the lung bases through the lesser trochanters before and after the IV administration of IV contrast. One of the following dose optimization techniques was utilized in the performance of this exam: Automated exposure control; adjustment of the mA and/or kV according to the patient's size; or use of an iterative reconstruction technique. Specific details can be referenced in the facility's radiology CT exam operational policy. CONTRAST: 50 ml of Isovue-370 FINDINGS: Lung bases: Mild bibasilar regions of scarring. Free air and free fluid: None. Liver: Negative. Spleen: Negative. Kidneys, ureters and urinary bladder: Negative. Adrenal glands: Negative. Pancreas: Negative. Gallbladder: Negative. Bowel and mesentery: There is contrast material within the colon. No bowel obstruction.. Pelvic contents: Patient status post hysterectomy. Lymph node assessment: Negative. Retroperitoneum: Negative. Abdominal vasculature: Calcified atherosclerotic plaque involving the abdominal aorta and its major branches. Surrounding soft tissues: Negative. Osseous structures: Negative. IMPRESSION: 1. No acute intra-abdominal or intrapelvic process. Report Dictated By: Paras Zurita MD at 03/17/2018 8:57 AM Report E-Signed By: Paras Zurita MD at 03/17/2018 9:03 AM WSN:[id number] ED Course/Re-evaluation Clinical Indication for ER IV: Hydration, IV Access ED Course 03/17/2018 9:44:12 am patient was accepted by Dr. Castellano for admission Dr. Unger will consult to see whether or not an endoscopy Performed today; in either case the patient will be admitted with a diagnosis of dysphagia Decision to Disposition Date: Mar 17, 2018 Decision to Disposition Time: 09:46 Depart Departure Latest Vital Signs Vital Signs Date Time Temp Pulse Resp B/P (MAP) Pulse Ox O2 Delivery O2 Flow Rate FiO2 03/17/18 10:15 143/87 (105) 03/17/18 10:10 72 97 03/17/18 08:20 15 03/17/18 07:34 2.0 03/17/18 06:48 98.2 Room Air Impression: Primary Impression: Dysphagia Condition: Improved Disposition: Admitted from ER (to Dr Burns) Referrals: GRACIE QUEVEDO MD (PCP) Problem Qualifiers Primary Impression: Dysphagia Dysphagia type: unspecified Qualified Codes: R13.10 - Dysphagia, unspecified MISHA TEMPLETON MD Mar 17, 2018 07:08
[2018-03-17] MEDS ORDERED: FAMOTIDINE(*) 20MG/50ML PREMIX 50 ML IVPB ONE (07:35)
[2018-03-17] MEDS ORDERED: MAG HYD/AL HYD/SIMETH 30ML UDC PO ONE (07:35)
[2018-03-17] MEDS ORDERED: METOCLOPRAMIDE 10 MG/2 ML SDV IVP ONE (07:35)
[2018-03-17] MEDS ORDERED: traMADol 50 MG TAB PO ONE (07:35)
[2018-03-17] MEDS ORDERED: IOPAMIDOL 76% 100 ML INFUS BTL 100 ML ONE (07:54)
[2018-03-17 08:04] LABS: PLATELET COUNT, AUTOMATED 223 K/uL (150-450)
--- NOTE | 2018-03-17 09:06 | RADIOLOGY IMAGING REPORT ---
FACILITY: [facility] [place] PATIENT NAME: Nelly Chisholm : 1945 MR: [id number] V: [id number] EXAM DATE: ORDERING PHYSICIAN: MISHA TEMPLETON TECHNOLOGIST: Location: [facility] [place] Patient: Nelly Chisholm : 1945 Visit/Account:[id number] Date of Sevice: 03/17/2018 ABDOMEN/PELVIS WITH CONTRAST COMPARISONS: August 10, 2010, report ADDITIONAL PERTINENT HISTORY: Abdominal pain TECHNIQUE: Multiple axial images were obtained from the lung bases through the lesser trochanters bef ore and after the IV administration of IV contrast. One of the following dose optimization technique s was utilized in the performance of this exam: Automated exposure control; adjustment of the mA and/ or kV according to the patient's size; or use of an iterative reconstruction technique. Specific de tails can be referenced in the facility's radiology CT exam operational policy. CONTRAST: 50 ml of Isovue-370 FINDINGS: Lung bases: Mild bibasilar regions of scarring. Free air and free fluid: None. Liver: Negative. Spleen: Negative. Kidneys, ureters and urinary bladder: Negative. Adrenal glands: Negative. Pancreas: Negative. Gallbladder: Negative. Bowel and mesentery: There is contrast material within the colon. No bowel obstruction.. Pelvic contents: Patient status post hysterectomy. Lymph node assessment: Negative. Retroperitoneum: Negative. Abdominal vasculature: Calcified atherosclerotic plaque involving the abdominal aorta and its major b ranches. Surrounding soft tissues: Negative. Osseous structures: Negative. IMPRESSION: 1. No acute intra-abdominal or intrapelvic process. Report Dictated By: Paras Zurita MD at 03/17/2018 8:57 AM Report E-Signed By: Paras Zurita MD at 03/17/2018 9:03 AM WSN:[id number]
--- NOTE | 2018-03-17 10:23 | General Surgery Consultation ---
History of Present Illness Requesting Physician Dr. Castellano, Hospitalist Dr. Moeller, ER Reason for Consult Dysphagia, inability to eat, failure to thrive Chief Complaint LINDA History of Present Illness 72yo female presents to the ER with severe dysphagia and inability to eat with 20 pound weight loss over the last 4 months. Symptoms started 4 months ago. She had an EGD in [place], [place] earlier this year which was apparently normal but she was having epigastric abdominal pain and not so much dysphagia at that time. She occasionally regurgitates undigest food. The dysphagia occurs with solids and liquids. She has had several EGDs in her life for epigastric pain but she's never had esophageal dilation. She was on pepcid as needed and she notices that she's had to take it more frequently over the last several months. She was only recently started on daily PPI rx about 4 days ago. History Problems: (1) Hyperthyroidism Status: Chronic (2) Benign hypertension Status: Chronic (3) Anxiety and depression Status: Chronic (4) Hemochromatosis carrier Status: Chronic (5) Elevated ferritin level Status: Chronic Home Meds Active Scripts Doxepin Hcl (DOXEPIN HCL) 10 Mg Capsule, 1-2 MG PO QHS Y for difficulty sleeping , #30 CAPSULE 3 Refills Prov:GRACIE QUEVEDO MD 03/15/18 Tramadol Hcl (TRAMADOL HCL) 50 Mg Tablet, 50 MG PO TID Y for pain, #90 TAB 1 Refill Prov:GRACIE QUEVEDO MD 03/12/18 Oxycodone Hcl/Acetaminophen (OXYCODONE-ACETAMINOPHEN 5-325) 1 Each Tablet, 1 EACH PO Q6H Y for PAIN, #40 TAB Prov:GRACIE QUEVEDO MD 03/07/18 Pantoprazole Sodium (PANTOPRAZOLE SODIUM) 40 Mg Tablet.dr, 40 MG PO QDAY, #30 TAB.SR 6 Refills Prov:GRACIE QUEVEDO MD 03/07/18 Methimazole (METHIMAZOLE) 10 Mg Tablet, 10 MG PO QDAY, #30 TAB 3 Refills Prov:GRACIE QUEVEDO MD 02/15/18 Celecoxib (CELEBREX) 200 Mg Capsule, 200 MG PO QDAY Y for pain, #30 CAPSULE 4 Refills Prov:GRACIE QUEVEDO MD 02/15/18 Valsartan (DIOVAN) 160 Mg Tablet, 160 MG PO DIRECTED, #30 TAB 2 Refills Prov:GRACIE QUEVEDO MD 01/29/18 Reported Medications Calcium Carbonate/Vitamin D3 (CALCIUM + VITAMIN D TABLET) 1 Each Tablet, 1 EACH PO 01/29/18 Cholecalciferol (Vitamin D3) (VITAMIN D3) 1,000 Unit Tablet, 2000 UNIT PO, TAB 01/29/18 Discontinued Reported Medications Cranberry Extract (CRANBERRY) Unknown Strength Capsule, PO BID, CAPSULE 01/29/18 Clonazepam (CLONAZEPAM) 0.5 Mg Tab.rapdis, 0.5 MG PO QDAY Y for pain, #6 TAB 01/29/18 Discontinued Scripts Mirtazapine (REMERON) 15 Mg Tablet, 0.5-1 TAB PO QHS, #30 TAB 3 Refills Prov:GRACIE QUEVEDO MD 03/12/18 Mirtazapine (REMERON) 15 Mg Tablet, 15 MG PO QHS, #30 TAB 3 Refills Prov:GRACIE QUEVEDO MD 03/12/18 Escitalopram Oxalate (ESCITALOPRAM OXALATE) 10 Mg Tablet, 10 MG PO QDAY, #30 TAB 3 Refills Prov:GRACIE QUEVEDO MD 03/07/18 Famotidine (PEPCID) 20 Mg Tablet, 20 MG PO BID, #10 TAB Prov:GRACIE QUEVEDO MD 03/07/18 Allergies: Coded Allergies: Cephalosporins (Verified Allergy, Mild, 03/17/18) Penicillins (Verified Allergy, Mild, 03/17/18) codeine (Verified Allergy, Mild, 03/17/18) nitrofurantoin (Verified Allergy, Mild, 03/17/18) Family History: Aortic aneurysm FATHER, , Age:83 FH: congestive heart failure MOTHER, , Age:86 FH: emphysema FATHER, , Age:83 FH: hyperlipidemia MOTHER, , Age:86 FH: hypertension MOTHER, , Age:86 Review of Systems All Systems Reviewed/Normal: Yes, Except as Noted Constitutional: Weight Loss Neurological: Weakness Gastrointestinal: Nausea, Dysphagia, Abdominal Pain Exam Vital Signs Vital Signs Date Time Temp Pulse Resp B/P (MAP) Pulse Ox O2 Delivery O2 Flow Rate FiO2 03/17/18 07:34 2.0 03/17/18 07:30 133/86 (102) 03/17/18 07:28 72 13 95 03/17/18 06:48 98.2 Room Air General Appearance: Alert, Awake, No Acute Distress, Afebrile Neuro: No Gross deficits Eyes: PERRLA GI: Abd Soft and Non-Tender Extremities: Warm, Perfused Medical Decision Making Data Points Result Diagram: 03/17/18 0630 03/17/18 0630 Assessment and Plan Problems: (1) Dysphagia Status: Chronic Assessment & Plan: 03/17/18: Pt being admitted to hospitalist service for severe dysphagia with inability to eat and failure to thrive. Will plan on EGD with esophageal dilation and possible biopsies today. I have explained the procedure to the patient and her in great detail as well as the alternative, risks, expected recovery. They indicate their understanding of the PAR discussion and their questions have been answered. They would like to proceed with this plan including EGD with dilation. After the procedure, we'll start with clear diet and advance as she tolerates. Depending on findings on endoscopy she may benefit from short term higher dose PPI rx. (2) Weight loss Status: Chronic (3) Failure to thrive in adult Status: Chronic Condition Stable Time Spent: < 30 min Venous Thromboembolism VTE Risk Physician Assess for VTE Risk: Yes Patient's VTE Risk: Low VTE Diagnostic Test 2 Days Prior to Admit: No Antithrombotics Is Pt On Any Antithrombotics?: No Problem Qualifiers (1) Dysphagia: Dysphagia type: esophageal phase Qualified Codes: R13.10 - Dysphagia, unspecified BROCK ODONNELL MD Mar 17, 2018 10:23
[2018-03-17] MEDS ORDERED: NORMOSOL R SOLN(*) 1000 ML BAG 1,000 ML IV ONE (10:25)
[2018-03-17] MEDS ORDERED: PANTOPRAZOLE SOD 40 MG IV VIAL IVP ONE (11:30)
[2018-03-17] MEDS ORDERED: CELECOXIB 200 MG CAP PO PRN (13:00)
[2018-03-17] MEDS ORDERED: INFLUENZA VIRUS VAC 0.5 ML SYR IM ONLY ONE (14:00)
--- NOTE | 2018-03-17 14:13 | History & Physical ---
History of Present Illness History of Present Illness 72 yo female with HTN, hyperthyroidism who came to the ER for worsening nausea and difficulty swallowing. She has had about a 15 pound weight loss over the last couple of months. Initially, she had early satiety that then progressed to stomach burning and now difficulty swallowing. She has had a work up in [place], [place]. Apparently, a normal EGD in November and a normal CT of the abd/ pelvis in December. She had an upper GI study here on 03/14 that showed high grade distal narrowing of the esophagus. Today, she work up nauseated, but cannot throw up. She had difficulty swallowing water. History Problems: (1) Benign hypertension Status: Chronic (2) Hyperthyroidism Status: Chronic (3) Weight loss Status: Chronic (4) Difficulty sleeping Status: Chronic Home Meds Active Scripts Doxepin Hcl (DOXEPIN HCL) 10 Mg Capsule, 1-2 MG PO QHS Y for difficulty sleeping , #30 CAPSULE 3 Refills Prov:GRACIE QUEVEDO MD 03/15/18 Tramadol Hcl (TRAMADOL HCL) 50 Mg Tablet, 50 MG PO TID Y for pain, #90 TAB 1 Refill Prov:GRACIE QUEVEDO MD 03/12/18 Oxycodone Hcl/Acetaminophen (OXYCODONE-ACETAMINOPHEN 5-325) 1 Each Tablet, 1 EACH PO Q6H Y for PAIN, #40 TAB Prov:GRACIE QUEVEDO MD 03/07/18 Pantoprazole Sodium (PANTOPRAZOLE SODIUM) 40 Mg Tablet.dr, 40 MG PO QDAY, #30 TAB.SR 6 Refills Prov:GRACIE QUEVEDO MD 03/07/18 Methimazole (METHIMAZOLE) 10 Mg Tablet, 10 MG PO QDAY, #30 TAB 3 Refills Prov:GRACIE QUEVEDO MD 02/15/18 Celecoxib (CELEBREX) 200 Mg Capsule, 200 MG PO QDAY Y for pain, #30 CAPSULE 4 Refills Prov:GRACIE QUEVEDO MD 02/15/18 Valsartan (DIOVAN) 160 Mg Tablet, 160 MG PO DIRECTED, #30 TAB 2 Refills Prov:GRACIE QUEVEDO MD 01/29/18 Reported Medications Calcium Carbonate/Vitamin D3 (CALCIUM + VITAMIN D TABLET) 1 Each Tablet, 1 EACH PO 01/29/18 Cholecalciferol (Vitamin D3) (VITAMIN D3) 1,000 Unit Tablet, 2000 UNIT PO, TAB 01/29/18 Discontinued Reported Medications Cranberry Extract (CRANBERRY) Unknown Strength Capsule, PO BID, CAPSULE 01/29/18 Clonazepam (CLONAZEPAM) 0.5 Mg Tab.rapdis, 0.5 MG PO QDAY Y for pain, #6 TAB 01/29/18 Discontinued Scripts Mirtazapine (REMERON) 15 Mg Tablet, 0.5-1 TAB PO QHS, #30 TAB 3 Refills Prov:GRACIE QUEVEDO MD 03/12/18 Mirtazapine (REMERON) 15 Mg Tablet, 15 MG PO QHS, #30 TAB 3 Refills Prov:GRACIE QUEVEDO MD 03/12/18 Escitalopram Oxalate (ESCITALOPRAM OXALATE) 10 Mg Tablet, 10 MG PO QDAY, #30 TAB 3 Refills Prov:GRACIE QUEVEDO MD 03/07/18 Famotidine (PEPCID) 20 Mg Tablet, 20 MG PO BID, #10 TAB Prov:GRACIE QUEVEDO MD 03/07/18 Allergies: Coded Allergies: Cephalosporins (Verified Allergy, Mild, 03/17/18) Penicillins (Verified Allergy, Mild, 03/17/18) codeine (Verified Allergy, Mild, 03/17/18) nitrofurantoin (Verified Allergy, Mild, 03/17/18) Patient History: Aortic aneurysm FATHER, , Age:83 FH: congestive heart failure MOTHER, , Age:86 FH: emphysema FATHER, , Age:83 FH: hyperlipidemia MOTHER, , Age:86 FH: hypertension MOTHER, , Age:86 Smoking Status: Former Smoker Hx Alcohol Use: No Hx Substance Use Disorder: No Social Drug Use: Never Review of Systems All Systems Reviewed/Normal: Yes, Except as Noted Exam Vital Signs Vital Signs Date Time Temp Pulse Resp B/P (MAP) Pulse Ox O2 Delivery O2 Flow Rate FiO2 03/17/18 13:30 80 166/87 (113) 94 03/17/18 12:28 Nasal Cannula 1.0 03/17/18 12:20 97.8 16 General Appearance: Alert, Awake, No Acute Distress Neuro: No Gross deficits Eyes: PERRLA ENT: Moist Mucous Membranes Cardiovascular: Regular Rate and Rhythm (S4 gallop noted on the LSB) Respiratory: Clear to Auscultation GI: Other (Diffuse abd tenderness that is mild with palpation. Non-distended, soft) Extremities: No Edema Medical Decision Making Data Points Result Diagram: 03/17/1862903/17/18629 Item Value Date Time Neutrophils (%) (Auto) 68.8 % 03/17/18629 Lymphocytes (%) (Auto) 23.4 % 03/17/18629 Eosinophils (%) (Auto) 1.5 % 03/17/18629 Monocytes (%) (Auto) 5.7 % 03/17/18629 Lipase 106 U/L 03/17/18629 Total Bilirubin 0.7 mg/dl 03/17/18629 Aspartate Amino Transf (AST/SGOT) 18 U/L 03/17/18 06 Alanine Aminotransferase (ALT/SGPT) 25 U/L 03/17/18 06 Alkaline Phosphatase 78 U/L 03/17/18629 Total Protein 7.3 g/dl 03/17/1830 Albumin 4.4 g/dl 03/17/18 0630 Urine RBC None /HPF 03/17/18 0850 Urine WBC <1 /HPF 03/17/18 0850 Urine Ketones 20 mg/dL H 03/17/18 0850 Helicobacter pylori IgG Antibody Negative 03/17/18 0630 EKG / Imaging Imaging CT of abd/pelvis - 1. No acute intra-abdominal or intrapelvic process. Assessment and Plan Problems: (1) Dysphagia Status: Acute Assessment & Plan: Etiology seems to be a distal esophageal stricture that has just been dilated by Dr. Brown. She is tolerating clears. She will get Protonix 40mg IV bid. If she is still having difficulty then need to consider transferring for evaluation by GI. (2) Weight loss Status: Chronic Assessment & Plan: Likely, secondary to above and exacerbated by hyperthyroidism. Will check a prealbumin. (3) Hyperthyroidism Status: Chronic Assessment & Plan: Continue methimazole. She recently had a thyroid nodule bx that showed no malignancy. (4) Benign hypertension Status: Chronic Assessment & Plan: Continue Diovan. (5) Difficulty sleeping Status: Chronic Assessment & Plan: Continue Doxepin. (6) Hemochromatosis carrier Status: Chronic Assessment & Plan: [facility] and gets phlebotomy prn. Copies to: GRACIE QUEVEDO MD Venous Thromboembolism Antithrombotics Is Pt On Any Antithrombotics?: No Exam Sepsis Risk: No Definite Risk Problem Qualifiers (1) Dysphagia: Dysphagia type: esophageal phase Qualified Codes: R13.10 - Dysphagia, unspecified KHURRAM ADHIKARI MD Mar 17, 2018 14:12
[2018-03-17] MEDS: traMADol 50 MG TAB PO PRN ×2 (16:10→22:53)
[2018-03-17] MEDS: METHIMAZOLE 10 MG TAB PO SCH (17:41)
[2018-03-17] MEDS ORDERED: PANTOPRAZOLE SOD 40 MG IV VIAL IVP SCH (21:00)
[2018-03-17] MEDS: PANTOPRAZOLE SOD 40 MG IV VIAL IVP SCH (21:59)
[2018-03-17] MEDS: DOXEPIN HCL 10 MG CAP PO PRN ×2 (22:54→23:34)
[2018-03-18 06:00] LABS: PLATELET COUNT, AUTOMATED 174 K/uL (150-450)
[2018-03-18] MEDS ORDERED: GI COCKTAIL 60 ML BTL PO PRN ×3 (06:45→08:15)
--- NOTE | 2018-03-18 06:50 | Hospitalist Progress Note ---
Subjective Progress Notes Subjective The patient had the epigastric pain with dinner and is still having some discomfort like prior to the dilatation. Physical Exam Vital Signs Date Time Temp Pulse Resp B/P (MAP) Pulse Ox O2 Delivery O2 Flow Rate FiO2 03/17/18 22:23 97.6 72 146/86 (106) 94 03/17/18 19:30 Nasal Cannula 2.0 03/17/18 12:20 16 General Appearance: Alert, Awake, No Acute Distress GI: Other (Soft, non-distended. She reports some soreness with palpation in the epigastric region) Result Diagram: 03/18/1851403/18/18514 Assessment and Plan Problems: (1) Dysphagia Status: Acute Assessment & Plan: Etiology seems to be a distal esophageal stricture that was dilated by Dr. Brown on 03/17. She is tolerating clears and some solids, but still getting the epigastric pain after eating. She is getting Protonix 40mg IV bid. Will add Carafate slurry before each meal and prn GI cocktail. If she is still having difficulty, then she could have MBS or may need to consider transferring for evaluation by GI. (2) Weight loss Status: Chronic Assessment & Plan: Likely, secondary to above and exacerbated by hyperthyroidism. Will check a prealbumin. (3) Hyperthyroidism Status: Chronic Assessment & Plan: Continue methimazole. She recently had a thyroid nodule bx that showed no malignancy. (4) Benign hypertension Status: Chronic Assessment & Plan: Continue Diovan. (5) Difficulty sleeping Status: Chronic Assessment & Plan: Continue Doxepin. (6) Hemochromatosis carrier Status: Chronic Assessment & Plan: Followed by the [facility] and gets phlebotomy prn. Exam Sepsis Risk: No Definite Risk Problem Qualifiers (1) Dysphagia: Dysphagia type: esophageal phase Qualified Codes: R13.10 - Dysphagia, unspecified KHURRAM ADHIKARI MD Mar 18, 2018 06:50
[2018-03-18 07:30] VITALS: BP 143/95
[2018-03-18 07:49] VITALS: BP 144/84
[2018-03-18] MEDS: SUCRALFATE 1 GM TAB PO SCH ×4 (07:53→21:34)
[2018-03-18] MEDS: PANTOPRAZOLE SOD 40 MG IV VIAL IVP SCH ×2 (09:07→21:33)
[2018-03-18] MEDS: VALSARTAN 80 MG TAB PO SCH (09:09)
--- NOTE | 2018-03-18 09:49 | General Surgery Progress Note ---
Subjective Progress Notes Subjective Main complaints are tightness in her throat and she feels trouble getting foods to pass in her throat. She wonders if this is related to the procedure yesterday or due to her chronic symptoms. She ate fish yesterday and after is passed her throat she had no problems but then felt LUQ pain. Physical Exam Vital Signs Date Time Temp Pulse Resp B/P (MAP) Pulse Ox O2 Delivery O2 Flow Rate FiO2 03/18/18 07:49 97.7 69 20 144/84 (104) 97 Nasal Cannula 0.5 Intake and Output 03/19/18 07:00 Intake Total 140 ml Balance 140 ml Intake Oral 140 ml General Appearance: Alert, Awake, No Acute Distress, Afebrile GI: Soft and Non-Tender Extremities: Warm, Perfused Result Diagram: 03/18/1815 03/18/18514 Assessment and Plan Problems: (1) Dysphagia Status: Chronic Assessment & Plan: 03/17/18: Pt being admitted to hospitalist service for severe dysphagia with inability to eat and failure to thrive. Will plan on EGD with esophageal dilation and possible biopsies today. I have explained the procedure to the patient and her in great detail as well as the alternative, risks, expected recovery. They indicate their understanding of the PAR discussion and their questions have been answered. They would like to proceed with this plan including EGD with dilation. After the procedure, we'll start with clear diet and advance as she tolerates. Depending on findings on endoscopy she may benefit from short term higher dose PPI rx. 03/18/18: Pt doing well but feels tightness in her throat and has postprandial LUQ abdominal pain. Will continue regular diet and she will look for patterns on what foods seem to exacerbate her symptoms. If her throat symptoms persist, will get a video swallow study. Will see how her symptoms respond to carafate. May consider hyosciamine for spasms if symptoms not improving with carafate. No specific pathology was seen on EGD yesterday, no stricture, neoplasm, web, ring, etc. I dilated her esophagus with a 60F wire-guided bougie and it passed without problems. Will also need to consider esophageal dysmotility or achalasia if her dysphagia doesn't improve although achalasia would cause throat symptoms. (2) Weight loss Status: Chronic (3) Failure to thrive in adult Status: Chronic Condition Stable. Time Spent: < 30 min Exam Sepsis Risk: No Definite Risk Problem Qualifiers (1) Dysphagia: Dysphagia type: oropharyngeal phase Qualified Codes: R13.12 - Dysphagia, oropharyngeal phase BROCK ODONNELL MD Mar 18, 2018 09:49
[2018-03-18] MEDS: traMADol 50 MG TAB PO PRN ×3 (10:24→21:34)
[2018-03-18 13:42] VITALS: BP 150/90
--- NOTE | 2018-03-18 14:07 | Medical Nutrition Therapy ---
Nutrition Anthropometrics Height (Inches): 63 Weight (Pounds): 99 Weight (Calculated Kilograms): 44.906 Jostin Nutrition Score: Adequate Jostin Nutrition Risk Score: 20 Dietary Referral Nutrition Risk Factors: Nutrition Risk Comment: Physical Findings Physical Appearance: Underweight BMI<19 Skin Appearance Skin Appearance: Edema Edema Location Modifier: Edema Location: Type of Edema: Degree of Edema: Gastrointestinal Symptoms GI Symtoms: Nausea, Appetite Changes Tube Present: Bowel Sounds: Recent Bowel Pattern: Stool Characteristics: Nutritional Diagnosis Nutritional Risk Acuity 2: Unintended Wt Loss >5%/mo, Dysphagia Nutritional Risk Acuity 3: Nausea, %IBW 81-89% Past Medical History: HTN, hyperthyroidism, wt loss, hemochromatosis Nutritional Acuity: 2-Moderate Nutrition Diagnosis: Inadequate Food Intake Nutrition Etiology: Physiological Causes Nutrition Problem/Etiology/Sym: Inadequate oral intake related to physiological causes as evidenced by swallowing problems, decreased appetite and wt loss of 15# Energy Requirement: 1370 ([id number]) Protein Requirement: 52 (52-66 (1.2-1.5 g/kg)) Fluid Requirement: 1370 Diet Type: Diet as Tolerated ARNULFO/REG Nutrition Intervention: Cont diet as ordered, Encourage intake Diet Comment To RSA: OFFER NUTR SUPPL Nutrition Monitoring & Eval RD Patient Assessment Time: [address] Assessment Type: RD Assessment Patient Nutrition Acuity: 2-Moderate Follow Up Date: Mar 21, 2018 Nutritional Comment: 03/18 Pt admitted wih nausea and difficulty swallowing. She had an EGD on 03/17 and no specific pathology was found. MD considering doing a MBS. Pt has had 15# wt loss over a few months due to early satiety and progressive swallowing problem. She reports postprandial epigastric pain. Noting low total pro 5.7 and alb 3.3. Per pt interview, wt loss started in November when she felt nauseous eating. She also started having trouble swallowing and was recently diagnosed with hyperthyroidism. She plans to monitor the foods she eats to see if she can identify problem foods. She tries to avoid fried foods, spicy foods and beef (due to hemochromatosis). I recommended she keep a food diary and eat a fairly bland diet while expermenting with foods. I also encouraged her to eat in a calm environment and eat slowly. -VERONICA LOUEI Mar 18, 2018 14:07
[2018-03-18 16:21] VITALS: BP 144/82
[2018-03-18] MEDS: METHIMAZOLE 10 MG TAB PO SCH (17:32)
[2018-03-18 18:36] VITALS: BP 148/97
[2018-03-18] MEDS: clonazePAM 0.5 MG TAB PO SCH (21:33)
[2018-03-19 04:01] VITALS: BP 173/88
[2018-03-19] MEDS: SUCRALFATE 1 GM TAB PO SCH ×4 (05:50→21:35)
[2018-03-19 07:45] VITALS: BP 147/106
--- NOTE | 2018-03-19 08:46 | General Surgery Progress Note ---
Subjective Progress Notes Subjective No new complaints. Still complaining of neck discomfort. Hard to get a clear answer as to whether she feels improved. At times she indicates she's feeling better but then at other times she indicates that there's really been no change in her throat/neck symptoms. Physical Exam Vital Signs Date Time Temp Pulse Resp B/P (MAP) Pulse Ox O2 Delivery O2 Flow Rate FiO2 03/19/18 07:45 97.5 78 15 147/106 (120) 91 Nasal Cannula 0.5 General Appearance: Alert, Awake, No Acute Distress, Afebrile Neck: No Masses GI: Soft and Non-Tender Extremities: Warm, Perfused Result Diagram: 03/18/1851403/18/18514 Assessment and Plan Problems: (1) Dysphagia Status: Chronic Assessment & Plan: 03/17/18: Pt being admitted to hospitalist service for severe dysphagia with inability to eat and failure to thrive. Will plan on EGD with esophageal dilation and possible biopsies today. I have explained the procedure to the patient and her in great detail as well as the alternative, risks, expected recovery. They indicate their understanding of the PAR discussion and their questions have been answered. They would like to proceed with this plan including EGD with dilation. After the procedure, we'll start with clear diet and advance as she tolerates. Depending on findings on endoscopy she may benefit from short term higher dose PPI rx. 03/18/18: Pt doing well but feels tightness in her throat and has postprandial LUQ abdominal pain. Will continue regular diet and she will look for patterns on what foods seem to exacerbate her symptoms. If her throat symptoms persist, will get a video swallow study. Will see how her symptoms respond to carafate. May consider hyosciamine for spasms if symptoms not improving with carafate. No specific pathology was seen on EGD yesterday, no stricture, neoplasm, web, ring, etc. I dilated her esophagus with a 60F wire-guided bougie and it passed without problems. Will also need to consider esophageal dysmotility or achalasia if her dysphagia doesn't improve although achalasia would cause throat symptoms. 03/19/18: Doing well but still with her neck symptoms/pharyngeal dysphagia that is questionable whether there's been any improvement. Will get a CT neck to look for masses or other pathology that could impinge on esophagus and will get a ST video swallow study today. (2) Weight loss Status: Chronic (3) Failure to thrive in adult Status: Chronic Condition Stable. Time Spent: < 30 min Exam Sepsis Risk: No Definite Risk Problem Qualifiers (1) Dysphagia: Dysphagia type: oropharyngeal phase Qualified Codes: R13.12 - Dysphagia, oropharyngeal phase BROCK ODONNELL MD Mar 19, 2018 08:46
[2018-03-19] MEDS ORDERED: IOPAMIDOL 76% 100 ML INFUS BTL 100 ML ONE (08:53)
[2018-03-19] MEDS: PANTOPRAZOLE SOD 40 MG IV VIAL IVP SCH ×2 (09:09→21:35)
[2018-03-19] MEDS: VALSARTAN 80 MG TAB PO SCH (09:10)
[2018-03-19] MEDS: traMADol 50 MG TAB PO PRN ×3 (09:10→21:35)
--- NOTE | 2018-03-19 09:52 | Hospitalist Progress Note ---
Subjective Progress Notes Subjective This patient was admitted for possible GI bleeding. She had no acute events overnight. Patient Complains of: Cardiovascular: No: Chest Pain Respiratory: No: Shortness of Breath Physical Exam Vital Signs Date Time Temp Pulse Resp B/P (MAP) Pulse Ox O2 Delivery O2 Flow Rate FiO2 03/19/18 07:45 97.5 78 15 147/106 (120) 91 Nasal Cannula 0.5 Cardiovascular: Regular Rate and Rhythm Respiratory: Clear to Auscultation Result Diagram: 03/18/1851403/18/18514 Assessment and Plan Problems: (1) Dysphagia Status: Acute Assessment & Plan: This is being managed by Dr. Brown. (2) Hyperthyroidism Status: Chronic Assessment & Plan: She is on chronic treatment with methimazole. (3) Benign hypertension Status: Chronic Assessment & Plan: She is on chronic treatment with valsartan. (4) Difficulty sleeping Status: Chronic Assessment & Plan: She is on chronic treatment with Doxepin. (5) Hemochromatosis carrier Status: Chronic Assessment & Plan: She is followed through the cancer center and receives periodic phlebotomy. (6) Malnutrition Assessment & Plan: We will request a dietary consult once she is able to tolerate oral intake. Exam Sepsis Risk: No Definite Risk Problem Qualifiers (1) Dysphagia: Dysphagia type: esophageal phase Qualified Codes: R13.10 - Dysphagia, unspecified BROCK SMITH DO Mar 19, 2018 09:52
[2018-03-19 12:12] VITALS: BP 143/91
--- NOTE | 2018-03-19 13:00 | RADIOLOGY IMAGING REPORT ---
FACILITY: [facility] - [place] PATIENT NAME: Nelly Chisholm : 1945 MR: [id number] V: [id number] EXAM DATE: ORDERING PHYSICIAN: BROCK ODONNELL TECHNOLOGIST: Location: [facility] - [place] Patient: Nelly Chisholm : 1945 Visit/Account:[id number] Date of Sevice: 03/19/2018 EXAMINATION: CT neck without IV contrast CT neck with IV contrast HISTORY: Difficulty swallowing. TECHNIQUE: Axial CT of the neck without and with IV contrast. Sagittal and coronal reformats. One of the following dose optimization techniques was utilized in the performance of this exam: Autom ated exposure control; adjustment of the mA and/or kV according to the patient's size; or use of an i terative reconstruction technique. Specific details can be referenced in the facility's radiology C T exam operational policy. CONTRAST: 75 mL of IV [id number] COMPARISON: Thyroid ultrasound dated 01/18/2018. FINDINGS: Masses/lesions: 2.0 x 1.6 x 1.1 cm nodule in the thyroid isthmus, similar compared to the recent thy roid ultrasound. Parotid and submandibular glands are unremarkable. Airway: Normal. Lymph nodes: Negative. Vessels: Negative. Musculoskeletal / Body wall: Mild degenerative disc disease at C5-C6. Visualized orbits / brain / paranasal sinuses: Negative. Upper chest: Negative. IMPRESSION: 2.0 x 1.6 x 1.1 cm nodule in the thyroid isthmus, similar compared to the recent thyroid ultrasound. Otherwise no suspicious mass, fluid collection, or lymphadenopathy in the neck. Report Dictated By: Romero Smith MD at 03/19/2018 12:40 PM Report E-Signed By: Romero Smith MD at 03/19/2018 12:56 PM [id number]
[2018-03-19 14:27] VITALS: BP 123/74
--- NOTE | 2018-03-19 16:34 | SLP BEDSIDE SWALLOW EVALUATION ---
SPEECH THERAPY mechanics supervisor: Sarah Leiva MS, [facility] Type of Assessment: Bedside Dysphagia Evaluation Patient: Nelly Chisholm : [birth year], 72 yrs Evaluation Date: 03/19/2018 BACKGROUND The patient is a 72yo female who presented to the ED on 03/17/18 with c/o early satiety, nausea, decreased appetite, and 17lbs of weight loss over the past 3-4 months with diagnosis of adult failure to thrive. Pt reports occasional regurgitation of undigested food, difficulty swallowing liquids and solids, and globus sensation in pharynx. Results of prior endoscopy were reportedly negative. Upper GI was performed on 03/14 w/ results revealing distal esophageal narrowing with subsequent need for dilation. ST evaluation was ordered to analyze oropharyngeal structure and function and determine safety for initiating PO intake. Primary Medical Diagnosis: Dysphagia Pain Scale (0-10): 0 LOC / Participation: Alert, very pleasant and cooperative Follows instructions: yes. Orientation: A&O x4 Functional Communication Deficits impact swallow function/safety, or response to therapy: No DYSPHAGIA Sialorrhea: No Xerostomia: No. Hygiene: WFL Supplemental Oxygen Use: Yes. 2LPM via NC. Respiratory Rate: 12. COPD Dx: No. Pain with Swallow: Reports discomfort. No pain. Oropharyngeal Structure and Function: Oromotor exam was mostly unremarkable w/ adequate labial and lingual strength, speed, coordination, and ROM. Mandibular ROM was somewhat restricted; however, pt attributes this to hx of temporomandibular joint surgery with inability to lateralize mandible. Hyolaryngeal elevation and excursion adequate to palpation. No vocal deficits noted. Strong protective cough elicited when prompted. Administered PO trials of ice chips, thin liquids via straw, pureed solids, soft solids, and regular solids. Overall, oral and pharyngeal phases of swallow are WFL for normal PO intake pending approval from medical team. Pt w/ only mildly prolonged mastication time, otherwise adequate bolus formation, timely a- p transit, and clearance of material from oral cavity. Pharyngeally, pt exhibited timely swallow initiation and no overt s/sx of aspiration across PO trials. Pt reported some sensation of material sticking in throat, with additional feeling of fullness after consumption of thin liquids. Pt able to identify infralaryngeal/suprasternal region. ST ASSESSMENT SUMMARY Aspiration Risk: Minimal. Negative prognostic indicators may include symptoms of reflux and esophageal stricture. Negative prognostic indicator may also include new need for supplemental oxygen. Speech Therapy Need ST services are warranted to follow-up with completion of modified barium swallow study to r/u possible oropharyngeal deviation 2/2 consistent reports of dysphagia, globus sensation, and fullness in the area near the upper esophageal sphincter. Services are also warranted to provide ongoing patient/ caregiver education re: aspiration precautions and compensatory swallow strategies. RECOMMENDATIONS 1. Diet: Regular, thin liquids, avoid problematic foods. 2. Medications: Whole, ok with thin liquids. 3. Compensatory Techniques: regular oral hygiene, up to chair during PO intake, small bites/sips, one bite/sip at a time, alternate bites/sips, upright for 60 min after PO intake, HOB elevated at 30 degrees, avoid PO intake for 2 hours prior to bedtime, minimize environmental distractions 4. Supervision with meals/snacks: Not warranted. Pt and spouse were provided w / visual education written handout re: compensatory techniques and aspiration precautions. POC 1. Pt will participate in modified barium swallow study to analyze oropharyngeal structure/function and obtain objective information re: reported dysphagia. 2. Pt and spouse will verbalize education provided re: safe swallow precautions and compensatory strategies to support tolerance of least restricted diet with minimized risk for choking, aspiration, malnutrition, dehydration, and discomfort. Thank you for this referral. Sarah Leiva M.S., [facility] Speech Therapist Physician Signature Date [*] MTDD
--- NOTE | 2018-03-19 16:47 | RADIOLOGY IMAGING REPORT ---
FACILITY: [facility] PATIENT NAME: Nelly Chisholm : 1945 MR: [id number] V: [id number] EXAM DATE: ORDERING PHYSICIAN: BROCK ODONNELL TECHNOLOGIST: Location: [facility] [place] Patient: Nelly Chisholm : 1945 Visit/Account:[id number] Date of Sevice: 03/19/2018 Exam type: ESOPH VIDEO SWALLOWING History: difficulty swallowing Comparison: None. Findings: The modified barium swallow was performed by the speech pathologist. The patient received thin bariu m and various food substances and a barium tablet. There is mild oral pharyngeal dysphasia, trace la ryngeal penetration and moderate esophageal dysphasia. Please see the speech pathologist report for complete details. The fluoroscopy dose area product was 122.65 micro-Tobias per meter squared IMPRESSION: 1. As above Report Dictated By: Carmen Vivas MD at 03/19/2018 4:42 PM Report E-Signed By: Carmen Vivas MD at 03/19/2018 4:43 PM WSN:[email or web address]
--- NOTE | 2018-03-19 17:02 | SLP MODIFIED BARIUM SWALLOW ---
Speech Language Pathology Modified Barium Swallow Evaluation Report Date of Evaluation: 03/19/2018 Patient Name: Nelly Chisholm Patient : 49, 72 yrs Clinician: Sarah Leiva M.S., [employer] BACKGROUND The patient is a 72yo female who presented to the ED on 03/17/18 with c/o early satiety, nausea, decreased appetite, and 17lbs of weight loss with diagnosis of adult failure to thrive. Pt reports occasional regurgitation of undigested food , difficulty swallowing liquids and solids, and globus sensation in pharynx. Results of prior endoscopy were reportedly negative. Upper GI was performed on 03/14 w/ results revealing distal esophageal narrowing with subsequent need for dilation. ST bedside swallow evaluation was completed on 03/19/18 analyze oropharyngeal swallow status and determine safety for initiating PO intake. Completion of a modified barium swallow study remained warranted to r/u possible oropharyngeal deviation 2/2 consistent reports of dysphagia, globus sensation, and fullness near the area of the upper esophageal sphincter. Oxygen Supplementation: none Level of Consciousness: non-altered Cognition: WFL Language: WFL Speech: WFL Voice: WFL Non-verbal Oral Structure and Function: WFL Pain with Swallow: denies; reports discomfort MODIFIED BARIUM SWALLOW In conjunction with radiology, lateral view with trials of the following consistencies: 7.5 and 15 ml of thin liquid, thins via self-serve cup sip, thins via straw, pureed solids, mechanically soft solids, mixed consistencies, regular solids, and a 1cm barium pill. ORAL STAGE Mild dysphagia. Material was adequately masticated with timely a-p transit and lingual stripping wave. Mild residue was noted on lingual surface and base of tongue across PO trials. Residue was efficiently cleared with use of double swallow. Mild discoordination noted with trials of mixed consistencies 2/2 difficulty masticating solid textures while containing liquid material. This resulted in decreased oral containment with premature posterior spillage of thin liquid component. PHARYNGEAL STAGE Mild dysphagia. Pt exhibited delayed swallow onset varying from base of tongue to the level of the pyriforms. Epiglottic inversion was adequate to support airway protection throughout all PO trials with good hyolaryngeal range of motion. Decreased timing of swallow mechanism resulted in minimal penetration before the swallow with liquid component during trials of mixed consistencies. Material was cleared from laryngeal space with bottom-top closure during the swallow. Mild weakness noted with base of tongue retraction and contraction of posterior pharyngeal wall. However, pharyngeal residue resulting from weakness was insignificant. Residue was successfully cleared with dry swallow. Thin Liquid: timely swallow. Mild residue noted on base of tongue and in vallecular space with all thin liquid trials (7.5 ml, 15 ml, cup sip, straw sip) . Pureed Food: delayed swallow onset to the base of tongue. Mild residue noted on base of tongue and in vallecular space. Mechanical Soft Foods: delayed swallow onset to the base of tongue. Mild residue noted on base of tongue and in vallecular space. Mixed Consistencies: delayed swallow onset to the pyriforms with thin liquid component. Shallow penetration noted before the swallow. Regular Solids: delayed swallow onset to the valleculae. Mild residue noted on base of tongue. Penetration/Aspiration Scale*: Thin liquids: Score of 1, contrast does not enter airway. Mixed consistencies: Score of 2, contrast enters airway, remains above the vocal folds, and is ejected from airway. Puree, soft, and regular solids: Score of 1, contrast does not enter airway. *(Landen et al. 1996) ESOPHAGEAL STAGE Suspected esophageal dysmotility. Esophageal residue and notably delayed clearance was observable in cervical esophagus during 100% of PO trials from start to finish of examination. Further stasis of material was observed during esophageal sweep in distal esophagus with administration of barium pill. Pill appeared to clear from esophagus to stomach. SUMMARY and RECOMMENDATIONS Aspiration Risk: mildly elevated risk 2/2 delayed initiation of pharyngeal swallow, mild pharyngeal weakness, known history of esophageal dysphagia, and history of reflux. Pt was provided with additional education re: reflux precautions and safe swallow strategies. 1. Diet: No need for modification in consistency of diet is indicated. Avoid problematic foods. 2. Patient was provided with verbal and written education regarding swallow anatomy and safe swallow recommendations. Strategies include: regular oral hygiene, up to chair during PO intake, small bites/sips, one bite/sip at a time , alternate bites/sips, upright for 60 min after PO intake, HOB elevated at 30 degrees, avoid PO intake for 2 hours prior to bedtime, minimize environmental distractions 3. Recommend close contact with GI specialist. Observations during swallow study may be consistent with Dr. Holman suspicion of esophageal dysmotility or achalasia. 4. Further ST services are not warranted at this time. Thank you for this referral. Please call [phone] to contact the [employer]. Sarah Leiva M.S., [facility] Physician Signature Date [*] MTDD
[2018-03-19] MEDS: METHIMAZOLE 10 MG TAB PO SCH (17:27)
[2018-03-19] MEDS ORDERED: MAGNESIUM HYDROXIDE* 30ML UDCP PO PRN (18:40)
[2018-03-19] MEDS ORDERED: POLYETHYLENE GLYCOL 17 GM PKT PO ONE (18:40)
[2018-03-19 19:20] VITALS: BP 133/86
[2018-03-19] MEDS: DOCUSATE SODIUM 100 MG CAP PO SCH (21:35)
[2018-03-19] MEDS: clonazePAM 0.5 MG TAB PO SCH (22:48)
[2018-03-19 22:50] VITALS: BP 151/93
[2018-03-20 03:24] VITALS: BP 123/71
[2018-03-20] MEDS: SUCRALFATE 1 GM TAB PO SCH ×2 (06:31→10:40)
[2018-03-20] MEDS: VALSARTAN 80 MG TAB PO SCH (08:16)
[2018-03-20] MEDS: DOCUSATE SODIUM 100 MG CAP PO SCH (08:18)
[2018-03-20 08:21] VITALS: BP 126/83
--- NOTE | 2018-03-20 08:23 | General Surgery Progress Note ---
Subjective Progress Notes Subjective Feeling better this morning. Wants to go home. Physical Exam Vital Signs Date Time Temp Pulse Resp B/P (MAP) Pulse Ox O2 Delivery O2 Flow Rate FiO2 03/20/18 08:03 90 03/20/18 07:40 Nasal Cannula 1.0 03/20/18 03:24 77 20 123/71 (88) 03/19/18 19:20 97.4 Intake and Output 03/21/18 07:00 # Voids 1 General Appearance: Alert, Awake, No Acute Distress, Afebrile GI: Soft and Non-Tender Extremities: Warm, Perfused Result Diagram: 03/18/18 0515 03/18/1815 Assessment and Plan Problems: (1) Dysphagia Status: Chronic Assessment & Plan: 03/17/18: Pt being admitted to hospitalist service for severe dysphagia with inability to eat and failure to thrive. Will plan on EGD with esophageal dilation and possible biopsies today. I have explained the procedure to the patient and her in great detail as well as the alternative, risks, expected recovery. They indicate their understanding of the PAR discussion and their questions have been answered. They would like to proceed with this plan including EGD with dilation. After the procedure, we'll start with clear diet and advance as she tolerates. Depending on findings on endoscopy she may benefit from short term higher dose PPI rx. 03/18/18: Pt doing well but feels tightness in her throat and has postprandial LUQ abdominal pain. Will continue regular diet and she will look for patterns on what foods seem to exacerbate her symptoms. If her throat symptoms persist, will get a video swallow study. Will see how her symptoms respond to carafate. May consider hyosciamine for spasms if symptoms not improving with carafate. No specific pathology was seen on EGD yesterday, no stricture, neoplasm, web, ring, etc. I dilated her esophagus with a 60F wire-guided bougie and it passed without problems. Will also need to consider esophageal dysmotility or achalasia if her dysphagia doesn't improve although achalasia would cause throat symptoms. 03/19/18: Doing well but still with her neck symptoms/pharyngeal dysphagia that is questionable whether there's been any improvement. Will get a CT neck to look for masses or other pathology that could impinge on esophagus and will get a ST video swallow study today. 03/20/18: Doing well. ST bolden with video swallow study without any obvious significant swallowing issues. No masses in neck on CT other than thyroid isthmus nodule which isn't big enough to cause her symptoms. Pt is feeling better this morning. Will continue PPI rx and carafate and I will see her back in my office. If she continues to have esophageal symptoms then will refer her to GI for manometry. OK for d/c to home from surgical/GI standpoint. (2) Weight loss Status: Chronic (3) Failure to thrive in adult Status: Chronic Condition Stable. Time Spent: < 30 min Exam Sepsis Risk: No Definite Risk Problem Qualifiers (1) Dysphagia: Dysphagia type: oropharyngeal phase Qualified Codes: R13.12 - Dysphagia, oropharyngeal phase BROCK ODONNELL MD Mar 20, 2018 08:23
[2018-03-20] MEDS ORDERED: PANTOPRAZOLE SOD 40 MG TABEC PO SCH ×2 (09:00→21:00)
[2018-03-20] MEDS ORDERED: POLYETHYLENE GLYCOL 17 GM PKT PO SCH (09:00)
[2018-03-20] MEDS ORDERED: SUCR1TAB51 PO (10:32)
[2018-03-20] MEDS ORDERED: PANT40TA65 PO (10:32)
[2018-03-20] MEDS: traMADol 50 MG TAB PO PRN (10:40)
--- NOTE | 2018-03-20 10:41 | Medical Nutrition Therapy ---
Nutrition Anthropometrics Height (Inches): 63 Weight (Pounds): 99 Weight (Calculated Kilograms): 44.906 Jsotin Nutrition Score: Adequate Jostin Nutrition Risk Score: 21 Dietary Referral Nutrition Risk Factors: Nutrition Risk Comment: Nutritional Diagnosis Nutritional Risk Acuity 2: Unintended Wt Loss >5%/mo, Dysphagia Nutritional Risk Acuity 3: Nausea, %IBW 81-89% Past Medical History: HTN, hyperthyroidism, wt loss, hemochromatosis Nutritional Acuity: 2-Moderate Nutrition Diagnosis: Inadequate Food Intake Nutrition Etiology: Physiological Causes Nutrition Problem/Etiology/Sym: Inadequate oral intake related to physiological causes as evidenced by swallowing problems, decreased appetite and wt loss of 15# Energy Requirement: 1370 ([id number]) Protein Requirement: 52 (52-66 (1.2-1.5 g/kg)) Fluid Requirement: 1370 Diet Type: Diet as Tolerated ARNULFO/REG Nutrition Intervention: Cont diet as ordered, Encourage intake Diet Comment To RSA: OFFER NUTR SUPPL Nutrition Monitoring & Eval Nutrition Follow-Up: Fair Intake RD Patient Assessment Time: [address] Assessment Type: RD Re-Assessment Patient Nutrition Acuity: 2-Moderate Follow Up Date: Mar 26, 2018 Nutritional Comment: 03/18 Pt admitted wih nausea and difficulty swallowing. She had an EGD on 03/17 and no specific pathology was found. MD considering doing a MBS. Pt has had 15# wt loss over a few months due to early satiety and progressive swallowing problem. She reports postprandial epigastric pain. Noting low total pro 5.7 and alb 3.3. Per pt interview, wt loss started in November when she felt nauseous eating. She also started having trouble swallowing and was recently diagnosed with hyperthyroidism. She plans to monitor the foods she eats to see if she can identify problem foods. She tries to avoid fried foods, spicy foods and beef (due to hemochromatosis). I recommended she keep a food diary and eat a fairly bland diet while expermenting with foods. I also encouraged her to eat in a calm environment and eat slowly. -EK 03/20 Pt was evaluated by ST with recommendation of reg diet with thin liquids. Pt eating 68% of meals. Talked with pt and encouraged pt to eat slow, chew well and pt may do better with soft, moist foods. Pt is being discharged today. Provided contact info and told pt she could call if she had any questions or concerns. MARCELINO URIBE Mar 20, 2018 10:41
--- NOTE | 2018-03-20 10:43 | Hospitalist Depart ---
Discharge Summary Reason for Hosp/Final Diag: (1) Dysphagia Status: Acute Hospital Course & Plan: Etiology seems to be a distal esophageal stricture that was dilated by Dr. Odonnell on 03/17. She is tolerating oral intake better, but still getting the epigastric pain after eating. She is getting Protonix 40mg po bid with Carafate. She will follow up with Dr. Odonnell. If symptoms persist or don't improve sufficiently, then she should follow up with GI. (2) Malnutrition Hospital Course & Plan: She has lost 15 pounds over the last couple of months secondary to dysphagia. Her prealbumin is low. It should be rechecked to follow for improvement after the dilation. (3) Hyperthyroidism Status: Chronic Hospital Course & Plan: She is on chronic treatment with methimazole. (4) Benign hypertension Status: Chronic Hospital Course & Plan: She is on chronic treatment with valsartan. (5) Difficulty sleeping Status: Chronic Hospital Course & Plan: She was on chronic treatment with clonazepam, but was tried on Doxepin with much improvement. Dr. Matias said it is okay to put her back on clonazepam, so I will give her a prescription for a months supply. (6) Hemochromatosis carrier Status: Chronic Hospital Course & Plan: She is followed through the cancer center and receives periodic phlebotomy. Departure Weight (Pounds): 99 Result Diagram: 03/18/18 0515 03/18/18 0515 Item Value Date Time White Blood Count 6.8 k/uL 03/17/18 0630 White Blood Count 8.5 k/uL 03/18/18 0515 Hemoglobin 13.4 g/dL 03/18/18 0515 Hemoglobin 15.5 g/dL 03/17/18 0630 Platelet Count 223 K/uL 03/17/18 0630 Platelet Count 174 K/uL 03/18/18 0515 Thyroid Stimulating Hormone (TSH) 0.75 uIU/ml 03/17/18 0630 Lipase 106 U/L 03/17/18 0630 Prealbumin 18.7 mg/dL L 03/18/18 0515 Blood Urea Nitrogen 13 mg/dl 03/17/18 0630 Blood Urea Nitrogen 12 mg/dl 03/18/18 0515 Creatinine 0.80 mg/dl 03/18/18 0515 Creatinine 0.90 mg/dl 03/17/18 0630 Total Bilirubin 0.7 mg/dl 03/17/18 0630 Total Bilirubin 0.5 mg/dl 03/18/18 0515 Aspartate Amino Transf (AST/SGOT) 17 U/L 03/18/18 0515 Alanine Aminotransferase (ALT/SGPT) 23 U/L 03/18/18 0515 Alkaline Phosphatase 56 U/L 03/18/18 0515 Alkaline Phosphatase 78 U/L 03/17/18 0630 Alanine Aminotransferase (ALT/SGPT) 25 U/L 03/17/18 0630 Aspartate Amino Transf (AST/SGOT) 18 U/L 03/17/18 0630 Albumin 4.4 g/dl 03/17/18 06 Albumin 3.3 g/dl L 03/18/18 0515 Urine Ketones 20 mg/dL H 03/17/18 0850 Urine Leukocyte Esterase Negative 03/17/18 0850 Urine RBC None /HPF 03/17/18 0850 Urine WBC <1 /HPF 03/17/18 0850 Urine Squamous Epithelial Cells None /LPF 03/17/18 0850 Helicobacter pylori IgG Antibody Negative 03/17/18 0630 Imaging 03/19/18 Modified Barium Swallow - The modified barium swallow was performed by the speech pathologist. The patient received thin barium and various food substances and a barium tablet. There is mild oral pharyngeal dysphasia, trace laryngeal penetration and moderate esophageal dysphasia. Please see the speech pathologist report for complete details. The fluoroscopy dose area product was 122.65 micro-Tobias per meter squared 03/19/18 CT of soft tissue of neck - 2.0 x 1.6 x 1.1 cm nodule in the thyroid isthmus, similar compared to the recent thyroid ultrasound. Otherwise no suspicious mass, fluid collection, or lymphadenopathy in the neck. 03/17/18 CT of abd/pelvis - 1. No acute intra-abdominal or intrapelvic process. Condition: Improved Discharge: Home Discharge Instructions Home Meds Active Scripts Clonazepam (CLONAZEPAM) 0.5 Mg Tablet, 0.5 MG PO QHS Y for insomnia, #30 Prov:KHURRAM ADHIKARI MD 03/20/18 Sucralfate (SUCRALFATE) 1 Gm Tablet, 1 GM PO ACHS1, #60 Prov:KHURRAM ADHIKARI MD 03/20/18 Pantoprazole Sodium (PANTOPRAZOLE SODIUM) 40 Mg Tablet.dr, 40 MG PO Q12H, #60 Prov:KHURRAM ADHIKARI MD 03/20/18 Tramadol Hcl (TRAMADOL HCL) 50 Mg Tablet, 50 MG PO TID Y for pain, #90 TAB 1 Refill Prov:GRACIE MATIAS MD 03/12/18 Oxycodone Hcl/Acetaminophen (OXYCODONE-ACETAMINOPHEN 5-325) 1 Each Tablet, 1 EACH PO Q6H Y for PAIN, #40 TAB Prov:GRACIE MATIAS MD 03/07/18 Pantoprazole Sodium (PANTOPRAZOLE SODIUM) 40 Mg Tablet., 40 MG PO QDAY, #30 TAB.SR 6 Refills Prov:GRACIE MATIAS MD 03/07/18 Methimazole (METHIMAZOLE) 10 Mg Tablet, 10 MG PO QDAY, #30 TAB 3 Refills Prov:GRACIE MATIAS MD 02/15/18 Celecoxib (CELEBREX) 200 Mg Capsule, 200 MG PO QDAY Y for pain, #30 CAPSULE 4 Refills Prov:GRACIE MATIAS MD 02/15/18 Valsartan (DIOVAN) 160 Mg Tablet, 160 MG PO DIRECTED, #30 TAB 2 Refills Prov:GRACIE MATIAS MD 01/29/18 Reported Medications Calcium Carbonate/Vitamin D3 (CALCIUM + VITAMIN D TABLET) 1 Each Tablet, 1 EACH PO 01/29/18 Cholecalciferol (Vitamin D3) (VITAMIN D3) 1,000 Unit Tablet, 2000 UNIT PO, TAB 01/29/18 Discontinued Reported Medications Cranberry Extract (CRANBERRY) Unknown Strength Capsule, PO BID, CAPSULE 01/29/18 Clonazepam (CLONAZEPAM) 0.5 Mg Tab.rapdis, 0.5 MG PO QDAY Y for pain, #6 TAB 01/29/18 Discontinued Scripts Doxepin Hcl (DOXEPIN HCL) 10 Mg Capsule, 1-2 MG PO QHS Y for difficulty sleeping , #30 CAPSULE 3 Refills Prov:GRACIE MATIAS MD 03/15/18 Mirtazapine (REMERON) 15 Mg Tablet, 0.5-1 TAB PO QHS, #30 TAB 3 Refills Prov:GRACIE MATIAS MD 03/12/18 Activity: As Tolerated Special Instructions: Follow up with Drs. Odonnell and Florencio as scheduled. Copies to: GRACIE MATIAS MD; BROCK ODONNELL MD Venous Thromboembolism Antithrombotics Is Pt On Any Antithrombotics?: No Problem Qualifiers (1) Dysphagia: Dysphagia type: esophageal phase Qualified Codes: R13.10 - Dysphagia, unspecified KHURRAM ADHIKARI MD Mar 20, 2018 10:43
[2018-03-20] MEDS ORDERED: CLON-298 PO (10:44)
[2018-03-20 11:55] VITALS: BP 148/93
== END 2018-03-20 12:52 | disposition home or self-care (01) | DRG 392 ==
LOC: ER 06:51 → OR 10:21 → MED 12:20
PROVIDERS: ADMIT Surgery; ATTEND Surgery
PROC: 0D798ZZ Dilation of Duodenum, Via Natural or Artificial Opening Endoscopic (ICD-10-PCS; 2018-03-17)
PROC: 0DB98ZX Excision of Duodenum, Via Natural or Artificial Opening Endoscopic, Diagnostic (ICD-10-PCS; principal; 2018-03-17 10:48)
DX: K22.2 Esophageal obstruction (principal); E46 Unspecified protein-calorie malnutrition; Z68.1 Body mass index [BMI] 19.9 or less, adult; R62.7 Adult failure to thrive; F41.8 Other specified anxiety disorders; I10 Essential (primary) hypertension; G89.29 Other chronic pain; E03.9 Hypothyroidism, unspecified; E83.119 Hemochromatosis, unspecified; E05.90 Thyrotoxicosis, unspecified without thyrotoxic crisis or storm; E04.1 Nontoxic single thyroid nodule; J44.9 Chronic obstructive pulmonary disease, unspecified; M79.7 Fibromyalgia; M81.0 Age-related osteoporosis without current pathological fracture; Z90.710 Acquired absence of both cervix and uterus; Z72.821 Inadequate sleep hygiene; Z88.0 Allergy status to penicillin; Z88.8 Allergy status to other drugs, medicaments and biological substances; Z87.891 Personal history of nicotine dependence; Z86.718 Personal history of other venous thrombosis and embolism
CPT/HCPCS: 36415; 70492; 74177; 74230; 74245; 81001; 82040; 82247; 82310; 82374; 82435; 82565; 82947; 83690; 84075; 84132; 84134; 84155; 84295; 84443; 84450; 84460; 84520; 85025; 86677; 88305; 96361; 96365; 96367; 96375; 99284; C1769; C9113; J2765; J3490; Q9967

== ENCOUNTER → 2018-03-17 | Outpatient (CLI) | payer MEDICARE, OTHER ==
[~2018-03-17] MED LIST changes: -BARIUM SULFATE 148 GM POWDER ONE; -BARIUM SULFATE 176 GM BTL PO ONE; -BARIUM SULFATE 240 ML ORAL SUS (NECTAR) ONE; -BARIUM SULFATE 340 GM POWD ONE; +CLON-298 PO; +SUCR1TAB51 PO
== END ==
LOC: AMB 06:00
PROVIDERS: ATTEND Nurse Practitioner
DX: R06.02 Shortness of breath (principal); E86.0 Dehydration; R11.2 Nausea with vomiting, unspecified
CPT/HCPCS: A0425; A0427

== ENCOUNTER → 2018-04-09 | Outpatient (CLI) | payer MEDICARE, OTHER ==
[~2018-04-09] MED LIST changes: +CLON-331 PO; +LOSA100T67 PO; +SUCR1TAB51 PO
[2018-04-09 10:16] LABS: PLATELET COUNT, AUTOMATED 203 K/uL (150-450)
== END ==
LOC: LAB 09:41
PROVIDERS: ATTEND Internal Medicine
DX: I10 Essential (primary) hypertension (principal); R13.14 Dysphagia, pharyngoesophageal phase; E05.90 Thyrotoxicosis, unspecified without thyrotoxic crisis or storm; R79.89 Other specified abnormal findings of blood chemistry; R63.4 Abnormal weight loss
CPT/HCPCS: 36415; 82040; 82247; 82310; 82374; 82435; 82565; 82728; 82947; 83540; 83550; 84075; 84132; 84155; 84295; 84439; 84443; 84450; 84460; 84520; 85025

== ENCOUNTER 2018-04-13 08:11 | Outpatient (RCR) | payer MEDICARE, OTHER ==
[~2018-04-13 08:11] MED LIST changes: -LOSA100T67 PO; +LOSA100T69 PO
[2018-04-13 10:38] VITALS: BP 123/74
--- NOTE | 2018-04-13 16:49 | ONCOLOGY FOLLOW UP NOTE ---
EVENT DATE: April 13, 2018 DIAGNOSES 1. Iron overload. 2. Thyroid nodules with nodular goiter. 3. Fibromyalgia. 4. Osteoporosis. 5. Hypertension. CHIEF COMPLAINT Patient is here today for followup of her iron overload. HEMATOLOGY/ONCOLOGY HISTORY Patient is a 72-year-old female who presented with abdominal pain, decreased appetite and feeling unwell, accompanied by 10-15 pounds of weight loss for the last two to three months. She underwent EGD on January 02, 2018 which was unremarkable. She was evaluated at the emergency room in [place], [place] on December 18, 2017 because of similar complaints and chronic back pain. During her evaluation by her primary care physician in [facility], Dr. De Los Santos, and in [place] the patient was found to have high iron. On May 03, 2017 her ferritin was 569, TIBC was 260, iron was 127 and iron saturation 49%. On October 23, 2017, her serum iron was 102, TIBC was 259, iron saturation 39% and ferritin was 384. Her ferritin on January 17, 2018 was 1038 while her ferritin on January 23, 2018 was 1054. Her iron studies on January 29, 2018 showed serum iron of 34 which is low, TIBC is low at 248, iron saturation was 13.7% and ferritin was 629. 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 She was also found to have decreased TSH at 0.021, slightly elevated elevated T4 and T3, so she subsequently underwent an ultrasound of the thyroid gland which showed a 2 cm complex nodule in the right lobe, and 2.5 cm hypervascular complex nodule in the left-sided isthmus. Patient has had left thyroid, left isthmus biopsy and cytology and right superior thyroid cytology done on February 07, 2018, and the pathology came negative for malignancy, but consistent with a nodular goiter. HISTORY OF PRESENT ILLNESS Patient is here today for followup of her iron overload. She is doing fine currently. She is feeling better after two sessions of phlebotomy. She has occasional nausea. Other than that she is really doing very well. PAST MEDICAL HISTORY 1. Thyroid nodule. 2. Hepatitis as a child. 3. Hyperlipidemia. 4. Hypertension. 5. COPD. 6. Fibromyalgia. 7. Osteoporosis. 8. Anxiety. PAST SURGICAL HISTORY 1. TMJ surgery complicated with staph infection for some time. 2. Appendectomy. 3. Left wrist surgery. 4. Kyphoplasty. 5. Tonsillectomy. 6. Hysterectomy. 7. Skin cancer removal. FAMILY HISTORY Negative for cancer, but her brother had history of iron overload and he as receiving phlebotomies. 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 She drinks socially. Denies any abuse of illicit drugs. CURRENT MEDICATIONS 1. Valsartan 160 mg daily. 2. Oxycodone/APAP 5/325 one tablet q.6 hourly p.r.n. 3. Calcium carbonate, vitamin D3 one tablet each. 4. Cranberry extract. 5. Vitamin D3 1000 units tablet two tablets daily. 6. Pepcid 20 mg orally daily. 7. Clonazepam 0.5 mg twice daily. 8. Tramadol 50 mg q.8 hourly p.r.n. for pain. ALLERGIES 1. AMOXICILLIN. 2. CEPHALOSPORINS. 3. SULFA which causes skin blisters. 4. NITROFURANTOIN caused also allergy. 5. CODEINE causing allergy. REVIEW OF SYSTEMS CONSTITUTIONAL: Her loss of appetite is getting better. HEENT: Ears: No tinnitus or hearing problem. Nose: No nasal discharge or epistaxis. Throat: No sore throat or mouth ulcers. Eyes: No diplopia or visual changes. RESPIRATORY: She has exertional shortness of breath. No cough, expectoration or hemoptysis. CARDIOVASCULAR: No chest pain, orthopnea, or paroxysmal nocturnal dyspnea (PND) . No edema. No palpitations. GASTROINTESTINAL: She has occasional nausea. No vomiting. No diarrhea or constipation. No change in bowel movements. No heartburn or swallowing difficulties. She has left-sided abdominal pain and epigastric pain. No jaundice. No hematemesis, melena or rectal bleeding. GENITOURINARY: No hematuria or dysuria. MUSCULOSKELETAL: She has generalized pain due to arthritis. NEUROLOGICAL: No tingling or numbness in the hands or feet. She has occasional headache. No convulsions. HEMATOLOGIC/LYMPHATIC: No bleeding or easy bruising. She is weak and fatigued. No enlarged lymph nodes. SKIN: No skin rash or lumps. PSYCHIATRIC: No anxiety or depression. PHYSICAL EXAMINATION GENERAL: Looks stable. Well-developed, well-nourished, and in no acute distress. VITAL SIGNS: Blood pressure 123/74, pulse 70 per minute, respirations 16 per minute, temperature 97.4, pulse ox 93% on room air. HEENT: Head: Atraumatic. No sinus tenderness to palpation. Eyes: No icterus or conjunctivitis. Mouth and Throat: No oral thrush or mucositis. NECK: Supple. No cervical or supraclavicular lymphadenopathy. LUNGS: Clear to auscultation and percussion bilaterally. HEART: Regular rate and rhythm. No gallops, murmurs, clicks or rubs. ABDOMEN: Soft and lax. No tenderness. No hepatosplenomegaly. No masses. EXTREMITIES: No cyanosis, clubbing or edema. LYMPHATICS: No peripheral lymphadenopathy. NEUROLOGICAL: Conscious, alert and oriented times three. No focal motor or sensory deficits. PSYCHIATRIC: Mood and affect appear normal. SKIN: No skin rash, bruise or purpuric eruption. DIAGNOSTIC DATA CBC showed white count 5.5, hemoglobin 14.5, hematocrit 43.3, platelets 203, 000. Chem panel totally normal except total protein 6.1. Serum iron is 32, TIBC normal at 287, iron saturation 11.1%, ferritin is normal at 105. TSH was 3.17, free T4 was 0.89, free T3 was 2.9, thyroglobulin was 37.6. ASSESSMENT 1. Iron overload likely due to underlying inflammatory condition. Her ferritin initially was 629. The patient received two sessions of phlebotomy. Her current ferritin is 105. I am planning to see her again in six months with CBC and iron studies with ferritin at that time. 2. Thyroid nodules due to nodular goiter as per cytology by ultrasound biopsy of the thyroid nodules done on February 07, 2018. The patient had a thyroglobulin level high at 37.6 and the patient is going to see an director specialty soon for that. 3. Fibromyalgia. 4. Osteoporosis. 5. Hypertension, on treatment.. PLAN 1. Continue followup. 2. Patient to return at the beginning of June before she leaves [facility] with CBC, iron studies with ferritin. 3. Consider phlebotomy if patient has serum ferritin above the normal range. 4. 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 5. Patient to contact us for any new concern or complaints. [facility]
--- NOTE | 2018-05-16 16:17 | TOBIN CONSULT ---
EVENT DATE: May 15, 2018 DIAGNOSIS Toxic multinodular goiter. REASON FOR CONSULTATION Patient is referred for administrative direction of iodine-131 therapy at the request of Dr. Garcia. HISTORY This is a 72-year-old lady who [place] outside of [place]. She is referred to the center for consideration of iodine-131 therapy today. The patient states that she developed symptoms of palpitations and weight loss by November of this past year. She was also experiencing dysphagia, although the latter could also be associated with hyperthyroidism surprisingly. The patient underwent initial evaluation by Dr. Matias and medical colleagues with laboratory studies revealing hyperthyroidism. The TSH was zero. The patient had a thyroid uptake scan on February 07, 2018. Left lobe uptake was 42.5%, and the right lobe was 22.3%. The normal range at [facility] is 10% to 30%. The patient was started on methimazole 10 mg q. day on February 15, 2018, and referred to Endocrinology for further advice/recommendations. Patient was seen by Dr. Garcia this past month. He went over therapeutic options with this patient on April 19, 2018, and advised her to strongly consider iodine-131 therapy. The patient is here for initial consultation and scheduling of the iodine-131 administration. She will be seen in Nuclear Medicine by staff for discussion of iodine-131 radiation precautions after my consultation today and is tentatively scheduled for the oral administration on May 29, 2018. Patient states that her weight loss is approximately 15 pounds in the last year. Palpitations have significantly improved in the last month, although she continues to have some vague abdominal pain and intermittent nausea. She is also having intermittent headaches, and a radiographic study has been requested by Dr. Brown for CT of the head tomorrow. We will contact their office and ask them to avoid contrast agents at least at this time. If an abnormality is detected, an MRI scan with contrast could be obtained for further assessment. Headaches presently are nonfocal. MEDICATIONS 1. Clonazepam 0.5 mg at bedtime p.r.n. insomnia. 2. Tramadol 50 mg p.o. t.i.d. for pain. 3. Losartan 100 mg q. day. 4. Pantoprazole 40 mg q.12 hours. 5. Oxycodone/APAP 5/325 one tablet q.6 hours p.r.n. breakthrough pain. 6. Methimazole 10 mg q. day. 7. Celebrex 200 mg q. day. 8. Carafate 1 g q.i.d. 9. Vitamin D3. ALLERGIES PENICILLIN, CEPHALOSPORIN, CODEINE, NITROFURANTOIN. PAST MEDICAL HISTORY 1. Hypertension. 2. Hyperlipidemia. 3. Depression. 4. Fibromyalgia. 5. Osteoporosis. 6. Chronic back pain. 7. 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 PAST SURGICAL HISTORY 1. Prior tonsillectomy. 2. Appendectomy. 3. Hysterectomy. 4. Esophageal dilation. 5. TMJ/facial surgery in [place]. 6. Cervical spine surgery. FAMILY HISTORY Negative for carcinoma. SOCIAL HISTORY Patient [place] outside of [facility]. They go to [place], [place], in the winter months for six months. Prior smoking history of a half pack per day for 35 years. The patient is , accompanied by her today. REVIEW OF SYSTEMS Notable for fatigue, loss of appetite, occasional palpitations, occasional trace swelling of extremities, intermittent nausea, abdominal discomfort, joint pain, chronic back pain, C-spine pain, muscle pain, fibromyalgia. PHYSICAL EXAMINATION GENERAL: Pleasant, 72-year-old female, thin build. VITALS: Weight 101, BP 151/89, pulse 79, respirations 16, O2 sat 95% on room air. NECK: No palpable lymphadenopathy in neck. There is some diffuse enlargement of the thyroid gland, left greater than right. Gland is soft. Wounds were clear bilaterally. HEART: Regular. No audible murmur. ABDOMEN: Soft. No gross organomegaly, mass, or tenderness. EXTREMITIES: Again, no significant edema. NEUROLOGICAL: Grossly intact. IMPRESSION AND PLAN This is a pleasant, 72-year-old female who was recently diagnosed with toxic multinodular goiter, presenting with weight loss and palpitations. She is referred for discussion of iodine-131 therapy. I went through the appropriate indications, alternatives, and side effects. Treatment is generally very well tolerated. Unfortunately, it is highly variable as far as the efficacy of the iodine-131 as it may take anywhere from two to six months to fully ablate thyroid cells and allow patient to be in a hypothyroid state, thereby allowing a stable dose of levothyroxine going forward. Recently, I have elected to use a slightly higher dose of 20 mCi as opposed to the older days where 5 to 10 mCi were utilized in an effort to increase therapeutic efficacy and accelerate response. The patient will tentatively be scheduled for the procedure in two weeks. She will undergo baseline education in the Nuclear Medicine Department at [facility] today for radiation precautions. Following the procedure, I advised the patient she will need regular lab work on a q.4 to 8-week basis. This could be performed locally with Dr. Matias initially or alternatively Dr. Garcia. Within two months, she will be moving to [place], [place], and they do have the name of an toy mechanic in [place] and are attempting to schedule a routine appointment at this time. I have asked the patient to go off her methimazole for one week prior to the iodine-131 treatment. There is a small group of patients who may require a second dose of iodine-131 as well within the first 12 months. I told the patient I would be happy to help manage any side effects from the treatment, and she was instructed to call me directly if she had any adverse effects within the first week from the oral administration of iodine-131. The majority of patients have no side effects; however, a small percentage of patients may have a slightly dry mouth, change in taste, or alternatively some minor swelling. All questions were answered to her satisfaction over a 70-minute consultation today. I have seen patients who were experiencing dysphagia from hyperthyroidism in the past, which has been reported in the literature multiple times. Hopefully, the patient's dyspepsia will also reverse itself within the next two months as the thyroid gland is ablated from the iodine-131 therapy. BRITTANI
[2018-05-18] MEDS ORDERED: METO25TA23 PO (12:27)
[2018-05-28] MEDS ORDERED: SUCR1TAB51 PO (17:17)
[2018-06-12] MEDS ORDERED: PANT40TA65 PO (11:28)
[2018-06-12] MEDS ORDERED: VALS160T22 PO (11:34)
[2018-06-12] MEDS ORDERED: METH-284 PO (11:34)
[2018-06-12] MEDS ORDERED: METO25TA23 PO (11:36)
[2018-06-12] MEDS ORDERED: LAN30PT PO (16:49)
[2018-06-18] MEDS ORDERED: POTA1SOL PO (16:46)
[2018-06-21] MEDS ORDERED: CLON-331 PO ×2 (16:37→16:58)
[2018-06-21] MEDS ORDERED: METH-284 PO (16:57)
[2018-07-07] MEDS ORDERED: SUCR1TAB51 PO (10:31)
[2018-07-07] MEDS ORDERED: TRAM-420 PO (10:31)
[2018-07-07] MEDS ORDERED: DOCU-202 PO (10:31)
[2018-07-07] MEDS ORDERED: RANI-318 PO (10:31)
[2018-07-07] MEDS ORDERED: LEV112 PO (10:31)
== END 2018-07-12 ==
LOC: ONC 08:11
PROVIDERS: ATTEND Internal Medicine Hematology
DX: E83.10 Disorder of iron metabolism, unspecified (principal); E04.2 Nontoxic multinodular goiter; M79.7 Fibromyalgia; M81.0 Age-related osteoporosis without current pathological fracture; I10 Essential (primary) hypertension; Z87.891 Personal history of nicotine dependence; R11.0 Nausea; R06.02 Shortness of breath; R10.13 Epigastric pain; R53.1 Weakness; R53.83 Other fatigue
CPT/HCPCS: 99212

== ENCOUNTER → 2018-05-09 | Outpatient (CLI) | payer MEDICARE, OTHER ==
[~2018-05-09] MED LIST changes: +LOSA100T67 PO; -LOSA100T69 PO
[2018-05-09 15:39] LABS: PLATELET COUNT, AUTOMATED 198 K/uL (150-450)
== END ==
LOC: LAB 14:53
PROVIDERS: ATTEND Internal Medicine
DX: F41.9 Anxiety disorder, unspecified (principal); E05.90 Thyrotoxicosis, unspecified without thyrotoxic crisis or storm; R63.4 Abnormal weight loss; R79.89 Other specified abnormal findings of blood chemistry
CPT/HCPCS: 36415; 82040; 82247; 82310; 82374; 82435; 82565; 82728; 82947; 83540; 83550; 84075; 84132; 84155; 84295; 84439; 84443; 84450; 84460; 84520; 85025

== ENCOUNTER 2018-05-15 13:49 | Outpatient (RCR) | payer MEDICARE, OTHER ==
[~2018-05-15 13:49] MED LIST changes: -LOSA100T67 PO; +LOSA100T69 PO
[2018-05-18] MEDS ORDERED: METO25TA23 PO (12:27)
[2018-05-28] MEDS ORDERED: SUCR1TAB51 PO (17:17)
[2018-06-12] MEDS ORDERED: PANT40TA65 PO (11:28)
[2018-06-12] MEDS ORDERED: METH-284 PO (11:34)
[2018-06-12] MEDS ORDERED: VALS160T22 PO (11:34)
[2018-06-12] MEDS ORDERED: METO25TA23 PO (11:36)
[2018-06-12] MEDS ORDERED: LAN30PT PO (16:49)
[2018-06-18] MEDS ORDERED: POTA1SOL PO (16:46)
[2018-06-21] MEDS ORDERED: CLON-331 PO ×2 (16:37→16:58)
[2018-06-21] MEDS ORDERED: METH-284 PO (16:57)
[2018-07-07] MEDS ORDERED: DOCU-202 PO (10:31)
[2018-07-07] MEDS ORDERED: RANI-318 PO (10:31)
[2018-07-07] MEDS ORDERED: TRAM-420 PO (10:31)
[2018-07-07] MEDS ORDERED: SUCR1TAB51 PO (10:31)
[2018-07-07] MEDS ORDERED: LEV112 PO (10:31)
== END 2018-07-16 14:33 | disposition home or self-care (01) ==
LOC: RAON 13:49
PROVIDERS: ATTEND Radiology Radiation Oncology
DX: E05.20 Thyrotoxicosis with toxic multinodular goiter without thyrotoxic crisis or storm (principal)
CPT/HCPCS: 99202

== ENCOUNTER → 2018-05-16 | Outpatient (CLI) | payer MEDICARE, OTHER ==
[~2018-05-16] MED LIST changes: +LOSA100T67 PO; -LOSA100T69 PO
--- NOTE | 2018-05-16 14:45 | RADIOLOGY IMAGING REPORT ---
FACILITY: [facility] PATIENT NAME: Nelly Chisholm : 1945 MR: [id number] V: [id number] EXAM DATE: ORDERING PHYSICIAN: BROCK ODONNELL TECHNOLOGIST: Location: [facility] Patient: Nelly Chisholm : 1945 Visit/Account:[id number] Date of Sevice: 05/16/[address] scan without contrast COMPARISONS: None ADDITIONAL PERTINENT HISTORY: Headache with nausea and vomiting. TECHNIQUE: Multiple axial images were obtained from the skull base to the vertex without IV contrast . One of the following dose optimization techniques was utilized in the performance of this exam: Aut omated exposure control; adjustment of the mA and/or kV according to the patient's size; or use of an iterative reconstruction technique. Specific details can be referenced in the facility's radiology CT exam operational policy. FINDINGS: Midline shift: Negative Ventricles: Negative Brain parenchyma: Negative Extra-axial spaces: Negative Intracranial vasculature: Cavernous internal carotid and distal vertebral artery calcifications. Ot herwise negative Osseous structures: Negative Paranasal sinuses and mastoid air cells: Negative Surrounding soft tissues and orbits: Negative IMPRESSION: 1. Mild age related changes as described above. 2. No evidence of acute intracranial pathology. Report Dictated By: Paras Zurita MD at 05/16/2018 2:37 PM Report E-Signed By: Paras Zurita MD at 05/16/2018 2:40 PM WSN:[id number]
== END ==
LOC: CT 01:00
PROVIDERS: ATTEND Surgery
DX: I65.23 Occlusion and stenosis of bilateral carotid arteries (principal)
CPT/HCPCS: 70450

== ENCOUNTER → 2018-06-08 | Outpatient (CLI) | payer MEDICARE, OTHER ==
[~2018-06-08] MED LIST changes: -LOSA100T67 PO; +LOSA100T69 PO; +METO25TA23 PO
[2018-06-08 12:33] LABS: PLATELET COUNT, AUTOMATED 187 K/uL (150-450)
--- NOTE | 2018-06-08 12:42 | EKG ---
FACILITY: [facility] PATIENT NAME: NGOC CARRILLO : [id number] MR: [id number] V: [id number] EXAM DATE: ORDERING PHYSICIAN: GRACIE QUEVEDO TECHNOLOGIST: Test Reason : Blood Pressure : / mmHG Vent. Rate : 080 BPM Atrial Rate : 080 BPM P-R Int : 148 ms QRS Dur : 082 ms QT Int : 362 ms P-R-T Axes : 059 069 057 degrees QTc Int : 417 ms Normal sinus rhythm Normal ECG When compared with ECG of 15-FEB-2018 14:39, No significant change was found Confirmed by GRACIE QUEVEDO ([id number]) on 06/11/2018 3:03:49 PM Referred By: Confirmed By:GRACIE QUEVEDO
== END ==
LOC: LAB 12:06
PROVIDERS: ATTEND Internal Medicine
DX: E83.52 Hypercalcemia (principal); E05.20 Thyrotoxicosis with toxic multinodular goiter without thyrotoxic crisis or storm; I10 Essential (primary) hypertension; R10.13 Epigastric pain; R13.10 Dysphagia, unspecified; Z14.8 Genetic carrier of other disease; R79.89 Other specified abnormal findings of blood chemistry
CPT/HCPCS: 36415; 82040; 82247; 82310; 82374; 82435; 82565; 82728; 82947; 83540; 83550; 84075; 84132; 84155; 84295; 84439; 84443; 84450; 84460; 84520; 85025; 93005

== ENCOUNTER → 2018-06-13 | Outpatient (CLI) | payer MEDICARE, OTHER ==
[~2018-06-13] MED LIST changes: +LAN30PT PO
--- NOTE | 2018-06-13 15:28 | RADIOLOGY IMAGING REPORT ---
FACILITY: [facility] PATIENT NAME: Nelly Chisholm : 1945 MR: [id number] V: [id number] EXAM DATE: [id number] ORDERING PHYSICIAN: GRACIE QUEVEDO TECHNOLOGIST: Location: [facility] Patient: Nelly Chisholm : 1945 Visit/Account:[id number] Date of Sevice: 06/13/2018 Exam type: CHEST PA AND LAT History: pre op, htn Comparison: February 16, 2016. Findings: Again noted is marked hyperinflation of the lung reyes although no evidence of acute-appearing pulmo nary consolidation. There is no evidence of pleural effusions or pulmonary edema. The cardiac silho uette is normal in size there is marked ectasia the thoracic aorta. This osteopenia the visualized b ones and vertebroplasty changes again seen in the midthoracic spine IMPRESSION: 1. Marked hyperinflation of the lung reyes although no evidence of acute pulmonary consolidation Report Dictated By: Carmen Vivas MD at 06/13/2018 3:23 PM Report E-Signed By: Carmen Vivas MD at 06/13/2018 3:24 PM WSN:[id number]
== END ==
LOC: RAD 14:31
PROVIDERS: ATTEND Internal Medicine
DX: Z01.818 Encounter for other preprocedural examination (principal); J98.4 Other disorders of lung; I10 Essential (primary) hypertension
CPT/HCPCS: 71046

== ENCOUNTER → 2018-06-15 | Outpatient (CLI) | payer MEDICARE, OTHER ==
[~2018-06-15] MED LIST changes: +POTA1SOL PO
== END ==
LOC: RESP 06:07
PROVIDERS: ATTEND Internal Medicine
DX: J98.4 Other disorders of lung (principal)
CPT/HCPCS: 94060; 94726; 94729

== ENCOUNTER → 2018-06-21 | Outpatient (CLI) | payer MEDICARE, OTHER | LOC: LAB 16:42 | PROVIDERS: ATTEND Internal Medicine | DX: I10 Essential (primary) hypertension (principal); J44.9 Chronic obstructive pulmonary disease, unspecified; E05.90 Thyrotoxicosis, unspecified without thyrotoxic crisis or storm | CPT/HCPCS: 36415; 82040; 82247; 82310; 82374; 82435; 82565; 82947; 84075; 84132; 84155; 84295; 84439; 84443; 84450; 84460; 84481; 84520 ==

== ENCOUNTER → 2018-06-29 | Outpatient (CLI) | payer MEDICARE, OTHER | LOC: LAB 10:20 | PROVIDERS: ATTEND Surgery | DX: E05.90 Thyrotoxicosis, unspecified without thyrotoxic crisis or storm (principal) | CPT/HCPCS: 36415; 84443 ==

== ENCOUNTER 2018-07-06 00:15 | Observation (INO) | payer MEDICARE, OTHER ==
[2018-07-06] VITALS (13 sets, daily range): BP systolic 117–154; BP diastolic 79–96
[~2018-07-06] VITALS: Ht 157.5 cm; Wt 45.4 kg
[2018-07-06] MEDS ORDERED: NORMOSOL R SOLN(*) 1000 ML BAG 1,000 ML IV PRN (06:30)
[2018-07-06] MEDS ORDERED: FAMOTIDINE 20 MG/50 ML PREMIX IVPB ONE (06:30)
[2018-07-06] MEDS ORDERED: MIDAZOLAM 2 MG/2 ML VIAL IVP PRN (06:30)
[2018-07-06] MEDS ORDERED: LIDOCAINE/SOD BICARB 8.4% SYR ID ONE (06:30)
[2018-07-06] MEDS ORDERED: VANCOMYCIN 1 GM ADDVIAL 1 GM in NS(*) 0.9% 250 ML ADDVAN BAG 250 ML IVPB ONE (06:30)
[2018-07-06] MEDS ORDERED: ROPIVACAINE 0.5% 20 ML VIAL ONE (06:42)
[2018-07-06] MEDS ORDERED: GELATIN SPONGE 12-7MM ONE (06:43)
[2018-07-06] MEDS ORDERED: fentaNYL CITR 250 MCG/5 ML AMP ONE (07:16)
[2018-07-06] MEDS ORDERED: ONDANSETRON 4 MG/2 ML VIAL ONE (07:16)
[2018-07-06] MEDS ORDERED: PROPOFOL EMUL(*) 10MG/ML 20 ML 20 ML ONE (07:16)
[2018-07-06] MEDS ORDERED: SUGAMMADEX SOD 200 MG/2 ML SDV ONE (07:16)
[2018-07-06] MEDS ORDERED: DEXAMETHASONE SOD 4 MG/ML VIAL ONE (07:16)
[2018-07-06] MEDS ORDERED: ROCURONIUM BROM 10 MG/ML 10 ML ONE (07:16)
[2018-07-06] MEDS ORDERED: LIDOCAINE MPF 1% 5 ML VIAL ONE (07:16)
[2018-07-06] MEDS ORDERED: KETAMINE HCL-NS 50 MG/5 ML SYR ONE (07:18)
[2018-07-06] MEDS ORDERED: fentaNYL CITR 100 MCG/2 ML AMP ONE (09:43)
[2018-07-06] MEDS ORDERED: NS(*) 0.9% 1000 ML BAG 1,000 ML IV PRN (09:59)
[2018-07-06] MEDS ORDERED: HYDROmorphone HCL 2 MG TAB PO PRN (10:00)
[2018-07-06] MEDS ORDERED: FLUSH 10 ML SYR IVP PRN (10:00)
[2018-07-06] MEDS ORDERED: MORPHINE 2 MG/ML SYR IVP PRN (10:00)
[2018-07-06] MEDS ORDERED: ONDANSETRON 4 MG/2 ML VIAL IVP PRN (10:00)
[2018-07-06] MEDS ORDERED: BENZOCAINE/MENTHOL 1 EACH LOZG PO PRN (10:00)
--- NOTE | 2018-07-06 10:36 | Post Operative Progress Note ---
Post Operative Progress Note Date: Jul 06, 2018 Time: 10:05 Surgeon: Stephanie Dictation number: [id number] Anesthesia: GETA by Dr. Arenas Pre-Op Diagnosis: Hyperthyroidism Post-Op Diagnosis: LINDA Findings: None Procedure(s): Total thyroidectomy Specimen Removed:(May be N/A): Thyroid Complications: None Fluids: See anesthesia record Estimated Blood Loss: Minimal Date OP Note Dictated: Jul 06, 2018 Time OP Note Dictated: 10:05 BROCK ODONNELL MD Jul 06, 2018 10:36
[2018-07-06] MEDS ORDERED: CALCIUM CARBONATE 500 MG CHEW PO ONE (11:30)
--- NOTE | 2018-07-06 11:39 | OPERATIVE REPORT 1 ---
EVENT DATE: July 06, 2018 SURGEON: Negro Brown M.D. ANESTHESIOLOGIST: Lm Rose MD ANESTHESIA: General endotracheal. PREOPERATIVE DIAGNOSIS Hyperthyroidism. POSTOPERATIVE DIAGNOSIS Hyperthyroidism. PROCEDURE PERFORMED Total thyroidectomy. COMPLICATIONS None. CONDITION Stable. ESTIMATED BLOOD LOSS Minimal. INDICATIONS Patient is a 72-year-old female who has been dealing with hyperthyroidism for the last several months. She has discussed radioactive iodine but after discussing with friends and doing some research on her own she is just wanting to proceed with a total thyroidectomy to have more quicker return to normal health with resolution of her hyperthyroid symptoms. DESCRIPTION OF PROCEDURE The patient was brought to the operating room and placed supine on the operating room table. General endotracheal anesthesia was administered and she was placed in a beach chair configuration with her neck extended and I marked the skin in a crease and then set up the nerve monitor probes and then her neck was prepped and draped in a sterile fashion. Time-out was completed and I anesthetized the skin where I marked it and made a 6 cm incision centered on the midline and neck crease and then dissected through the dermis and into the subcutaneous tissues. I divided the platysmas muscle and then created subplatysmal flaps down to the sternal notch and up towards the laryngeal cartilage and then divided the median raphe between the strat muscles. I then started with the right lobe and using a lot of blunt dissection as well as electrocautery with bipolar monopolar as well as the Harmonic scalpel was able to free up the right lobe in this very thin patient. It was a rather easy dissection. I came across the inferior vessels with a Harmonic scalpel and divided the middle thyroidal vein with a Harmonic scalpel and then came across the superior thyroidal vascular pedicle with a Harmonic scalpel as well. I identified both the superior and inferior parathyroid glands and preserved their blood flow and stripped the glands off the posterior aspect of the thyroid and left them in situ. I used the nerve monitor throughout the case and identified both the superior laryngeal and recurrent laryngeal nerves. I then divided the ligament of Irizarry all the way to the anterior trachea and then went to the other side of the table and began the same process on the patient's left side. I stripped the strat muscles off the anterior surface of the thyroid and came around the entire thyroid and performed the same dissection as I did on the right side. I also identified the inferior parathyroid gland and the superior was fairly posterior and appeared as a fatted globulin. I left this in situ, although I cannot definitively say whether it was a parathyroid but since I had already preserved the ones on the right and the inferior left I did not inquire further. I identified the recurrent laryngeal nerve on the patient's left and was not able to identify the superior laryngeal nerve on the left but stayed close to the thyroid so risk of injury to this is very small. I medialized the left thyroid lobe, came through the ligament of Irizarry and then removed the remaining strands of ligament from the trachea and then passed the specimen off the field. I then irrigated and dried the patient's neck, used Fibrillar on both sides to also help with hemostasis and continued to irrigate and remove the Fibrillar. When I was done, the neck was completely hemostatic and dry. I did place a 10 mm round drain into the neck, exiting in the skin over the suprasternal notch and this drain covered both sides of the neck and I sutured it to the skin with a 3-0 silk suture. I then closed the midline raphe with interrupted 3-0 Vicryl sutures and the platysmas was closed with 3-0 Vicryl sutures. The skin was closed with running 4-0 Monocryl subcuticular suture. The skin was cleaned and dried and I placed steri-strips longitudinally along the incision and then placed sponges around the drain and taped this all into place. The patient was then awakened and extubated in the operating room and transported to the recovery room in stable condition, having tolerated the procedure without any apparent problems. BRITTANI
[2018-07-06] MEDS: ACETAMINOPHEN 325 MG TAB PO PRN (15:01)
[2018-07-06] MEDS: CALCIUM CARBONATE/VITAMIN D3 PO SCH (17:29)
[2018-07-06] MEDS ORDERED: clonazePAM 0.5 MG TAB PO PRN (19:25)
[2018-07-06] MEDS: FAMOTIDINE 20 MG TAB PO SCH (20:33)
[2018-07-06] MEDS: SUCRALFATE 1 GM TAB PO SCH (20:33)
[2018-07-06] MEDS: DOCUSATE SODIUM 100 MG CAP PO SCH (20:33)
[2018-07-06] MEDS: traMADol 50 MG TAB PO PRN (20:33)
[2018-07-07] MEDS: traMADol 50 MG TAB PO PRN ×3 (01:52→11:10)
[2018-07-07 03:38] VITALS: BP 157/96
[2018-07-07] MEDS: ACETAMINOPHEN 325 MG TAB PO PRN ×2 (05:39→11:10)
[2018-07-07] MEDS ORDERED: LEVOTHYROXINE SOD 0.112 MG TAB PO SCH (06:00)
[2018-07-07 06:28] LABS: PLATELET COUNT, AUTOMATED 190 K/uL (150-450)
[2018-07-07 07:10] VITALS: BP 153/89
[2018-07-07] MEDS: DOCUSATE SODIUM 100 MG CAP PO SCH (08:34)
[2018-07-07] MEDS: FAMOTIDINE 20 MG TAB PO SCH (08:34)
[2018-07-07] MEDS: CALCIUM CARBONATE/VITAMIN D3 PO SCH (08:35)
[2018-07-07] MEDS: SUCRALFATE 1 GM TAB PO SCH (08:35)
[2018-07-07] MEDS ORDERED: VALSARTAN 160 MG TAB PO SCH (09:00)
[2018-07-07] MEDS ORDERED: METOPROLOL SUCC XL 25 MG TABCR PO SCH (09:00)
[2018-07-07] MEDS ORDERED: DOCU-202 PO (10:31)
[2018-07-07] MEDS ORDERED: RANI-318 PO (10:31)
[2018-07-07] MEDS ORDERED: SUCR1TAB51 PO (10:31)
[2018-07-07] MEDS ORDERED: LEV112 PO (10:31)
[2018-07-07] MEDS ORDERED: TRAM-420 PO (10:31)
--- NOTE | 2018-07-07 10:35 | Short(Outpt) Discharge Summary ---
Discharge Summary Reason for Hosp/Final Diag: (1) Hyperthyroidism Status: Chronic Hospital Course & Plan: Total thyroidectomy completed without problems. Pt recovered overnight without issues. Neck is soft, incision looks good. Drain removed this morning. Will d/c to home. Departure Discharge to: Home, Self Care Discharge Instructions Home Meds Active Scripts Ranitidine Hcl (RANITIDINE HCL) 150 Mg Tablet, 1 TAB PO BID, #60 TAB 3 Refills Prov:BROCK ODONNELL MD 07/07/18 Levothyroxine Sodium (LEVOTHYROXINE SODIUM) 0.112 Mg Tab, 1 TAB PO QDAY, #30 TAB 3 Refills Prov:BROCK ODONNELL MD 07/07/18 Docusate Sodium (DOCUSATE SODIUM) 100 Mg Capsule, 1 CAP PO BID, #30 CAPSULE 0 Refills Prov:BROCK ODONNELL MD 07/07/18 Sucralfate (SUCRALFATE) 1 Gm Tablet, 1 TAB PO BID, #60 TAB 3 Refills Prov:BROCK ODONNELL MD 07/07/18 Tramadol Hcl (TRAMADOL HCL) 50 Mg Tablet, 1 TAB PO Q6H PRN for pain, #90 TAB 3 Refills Prov:BROCK ODONNELL MD 07/07/18 Clonazepam (CLONAZEPAM) 0.5 Mg Tablet, 0.5 MG PO BID PRN for anxiety, #60 3 Refills Prov:GRACIE QUEVEDO MD 06/21/18 Methimazole (METHIMAZOLE) 10 Mg Tablet, 10 MG PO QDAY, #60 TAB 3 Refills Prov:GRACIE QUEVEDO MD 06/21/18 Potassium Iodide (Sski) 1 Gram/Ml Solution, 2 DROP PO TID, #10 ML 0 Refills Prov:BROCK ODONNELL MD 06/18/18 Metoprolol Succinate (METOPROLOL SUCCINATE) 25 Mg Tab.er.24h, 1 TAB PO QDAY, #30 TAB 3 Refills Prov:GRACIE QUEVEDO MD 06/12/18 Valsartan (DIOVAN) 160 Mg Tablet, 160 MG PO QDAY, #30 TAB 6 Refills Prov:GRACIE QUEVEDO MD 06/12/18 Celecoxib (CELEBREX) 200 Mg Capsule, 200 MG PO QDAY PRN for pain, #30 CAPSULE 4 Refills Prov:GRACIE QUEVEDO MD 02/15/18 Reported Medications Calcium Carbonate/Vitamin D3 (CALCIUM + VITAMIN D TABLET) 1 Each Tablet, 1 EACH PO 01/29/18 Cholecalciferol (Vitamin D3) (VITAMIN D3) 1,000 Unit Tablet, 2000 UNIT PO, TAB 01/29/18 Follow up Referrals: General Surgery - 07/20/18 @ Surgery, General with BROCK ODONNELL MD You have a follow up appointment scheduled with Dr. Odonnell on 07/20/18, at 1:00pm. Diet: Regular Activity: No Heavy Lifting, No Exertion Special Instructions: You may remove the drain site dressing on 07/08/18, then you can shower. If the drain site is dry and no longer draining, you can leave it open to air. If it continues to drain, place a dry gauze over the drain site and change this daily until no further drainage is evident. Leave the steristrips in place on the incision until they fall off on their own. Do not immerse the incision for 2 weeks. Avoid any activity that involves straining or lifting more than 10 pounds until 07/09/18. You can start taking celebrex on 07/09/18. BROCK ODONNELL MD Jul 07, 2018 10:35
[2018-07-07 11:16] VITALS: BP 86/54
[2018-07-07 11:25] VITALS: BP 147/92
[2018-07-07 13:54] VITALS: Ht 157.5 cm; Wt 45.4 kg
== END 2018-07-07 10:27 | disposition home or self-care (01) ==
LOC: OR 00:15 → MED 11:15
PROVIDERS: ADMIT Surgery; ATTEND Surgery
DX: E05.90 Thyrotoxicosis, unspecified without thyrotoxic crisis or storm (principal)
CPT/HCPCS: 36415; 60240; 84443; 85025; 88307; A9270; G0378; J1100; J2001; J2250; J2270; J2405; J2704; J2795; J3010; J3370; J3490; J7050; 82310; 82374; 82435; 82565; 82947; 84132; 84295; 84520

== ENCOUNTER → 2018-07-18 | Outpatient (CLI) | payer MEDICARE, OTHER ==
[2018-07-07 13:54] VITALS: BMI 18.3
[~2018-07-18] MED LIST changes: +DOCU-202 PO; +LEV112 PO; +RANI-318 PO
== END ==
LOC: LAB 16:09
PROVIDERS: ATTEND Surgery
DX: Z98.890 Other specified postprocedural states (principal)
CPT/HCPCS: 36415; 82310; 82374; 82435; 82565; 82947; 84132; 84295; 84520

== ENCOUNTER 2018-07-26 09:22 | Outpatient (RCR) | payer MEDICARE, OTHER ==
[2018-07-07 13:54] VITALS: Wt 45.7 kg
[~2018-07-26 09:22] MED LIST changes: +OMEP40CA48 PO
[2018-07-26 09:31] VITALS: BP 111/70
[2018-07-26] MEDS ORDERED: CELE-1 PO (14:35)
[2018-07-26] MEDS ORDERED: LEV112 PO (14:35)
[2018-07-26] MEDS ORDERED: OMEP40CA48 PO (14:35)
[2018-07-26] MEDS ORDERED: CLON-331 PO (14:35)
[2018-07-26] MEDS ORDERED: VALS160T22 PO (14:35)
[2018-07-26] MEDS ORDERED: TRAM-420 PO (14:35)
[2018-07-26] MEDS ORDERED: DOCU-202 PO (14:35)
[2018-07-26] MEDS ORDERED: SUCR1TAB51 PO (14:35)
--- NOTE | 2018-07-26 21:21 | ONCOLOGY FOLLOW UP NOTE ---
EVENT DATE: July 26, 2018 DIAGNOSES 1. Iron overload. 2. Thyroid nodules with nodular goiter. 3. Fibromyalgia. 4. Osteoporosis. 5. Hypertension. CHIEF COMPLAINT Patient is here today for followup of her iron overload. HEMATOLOGY/ONCOLOGY HISTORY Patient is a 72-year-old female who presented with abdominal pain, decreased appetite, and feeling unwell, accompanied by 10 to 15 pounds of weight loss for the last two to three months. She underwent EGD on January 02, 2018, which was unremarkable. She was evaluated at the emergency room in [place], [place], on December 18, 2017, because of similar complaints and chronic back pain. During her evaluation by her primary care physician in [facility], Dr. De Los Santos, and in [place], the patient was found to have high iron. On May 03, 2017, her ferritin was 569, TIBC was 260, iron was 127, and iron saturation 49%. On October 23, 2017, her serum iron was 102, TIBC was 259, iron saturation 39%, and ferritin was 384. Her ferritin on January 17, 2018, was 1038 while her ferritin on January 23, 2018, was 1054. Her iron studies on January 29, 2018, showed serum iron of 34 which is low, TIBC is low at 248, iron saturation was 13.7%, and ferritin was 629. 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 She was also found to have decreased TSH at 0.021, slightly elevated elevated T4 and T3, so she subsequently underwent an ultrasound of the thyroid gland which showed a 2 cm complex nodule in the right lobe and a 2.5 cm hypervascular complex nodule in the left-sided isthmus. Patient has had left thyroid, left isthmus biopsy and cytology, and right superior thyroid cytology done on February 07, 2018, and the pathology came negative for malignancy, but consistent with a nodular goiter. HISTORY OF PRESENT ILLNESS Patient is here today for followup of her iron overload. She had her thyroid surgery done two and a half weeks ago. She is complaining of some nausea and diarrhea. She has also gastric pain lately. She has pain in her legs, knees, hands, and ankles. She has also some tingling and numbness in her hands and feet. She is weak, tired, and fatigued. PAST MEDICAL HISTORY 1. Thyroid nodule. 2. Hepatitis as a child. 3. Hyperlipidemia. 4. Hypertension. 5. COPD. 6. Fibromyalgia. 7. Osteoporosis. 8. Anxiety. PAST SURGICAL HISTORY 1. TMJ surgery complicated with staph infection for some time. 2. Appendectomy. 3. Left wrist surgery. 4. Kyphoplasty. 5. Tonsillectomy. 6. Hysterectomy. 7. Skin cancer removal. FAMILY HISTORY Negative for cancer, but her brother had history of iron overload, and he is receiving phlebotomies. 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 She drinks socially. Denies any abuse of illicit drugs. CURRENT MEDICATIONS 1. Valsartan 160 mg daily. 2. Oxycodone/APAP 5/325 one tablet q.6 hours p.r.n. 3. Calcium carbonate/vitamin D3 one tablet. 4. Cranberry extract. 5. Vitamin D3 1000 units tablet two tablets daily. 6. Pepcid 20 mg orally daily. 7. Clonazepam 0.5 mg twice daily. 8. Tramadol 50 mg q.8 hours p.r.n. for pain. 9. Synthroid. ALLERGIES 1. AMOXICILLIN. 2. CEPHALOSPORINS. 3. SULFA which causes skin blisters. 4. NITROFURANTOIN caused also allergy. 5. CODEINE causing allergy. REVIEW OF SYSTEMS CONSTITUTIONAL: No appetite or weight change. She has some chills. No fever or sweating. No recent infection. HEENT: Ears: No tinnitus or hearing problem. Nose: No nasal discharge or epistaxis. Throat: No sore throat or mouth ulcers. Eyes: No diplopia or visual changes. RESPIRATORY: No shortness of breath. No cough, expectoration, or hemoptysis. CARDIOVASCULAR: No chest pain, orthopnea, or paroxysmal nocturnal dyspnea (PND). No edema. No palpitations. GASTROINTESTINAL: She has nausea, diarrhea, and epigastric abdominal pain. No vomiting. No constipation. No change in bowel movements. No heartburn or swallowing difficulties. No jaundice. No hematemesis, melena, or rectal bleeding. GENITOURINARY: No hematuria or dysuria. MUSCULOSKELETAL: She has pain in the legs, back, knees, hands, and ankles. NEUROLOGICAL: She has tingling and numbness in the hands and feet. No headaches or convulsions. HEMATOLOGIC/LYMPHATIC: No bleeding or easy bruising. She is weak, tired, and fatigued. No enlarged lymph nodes. SKIN: No skin rash or lumps. PSYCHIATRIC: No anxiety or depression. PHYSICAL EXAMINATION GENERAL: Looks stable. Well developed, well nourished, and in no acute distress. VITAL SIGNS: Blood pressure 111/70, pulse 86 per minute, respirations 16 per minute, temperature 96.9, pulse ox 92% on room air. HEENT: Head: Atraumatic. No sinus tenderness to palpation. Eyes: No icterus or conjunctivitis. Mouth and Throat: No oral thrush or mucositis. NECK: Supple. No cervical or supraclavicular lymphadenopathy. LUNGS: Clear to auscultation and percussion bilaterally. HEART: Regular rate and rhythm. No gallops, murmurs, clicks, or rubs. ABDOMEN: Soft and lax. No tenderness. No hepatosplenomegaly. No masses. EXTREMITIES: No cyanosis, clubbing, or edema. LYMPHATICS: No peripheral lymphadenopathy. NEUROLOGICAL: Conscious, alert, and oriented times three. No focal motor or sensory deficits. PSYCHIATRIC: Mood and affect appear normal. SKIN: No skin rash, bruise, or purpuric eruption. DIAGNOSTIC DATA CBC showed white count 12.2, hemoglobin 14, hematocrit 42.2, platelets 190,000. Chem panel totally normal except BUN 28. ASSESSMENT 1. Iron overload, likely due to underlying inflammatory condition. Her ferritin initially was 629. The patient received two sessions of phlebotomy, and her last ferritin level was 105. She had her thyroid surgery two and a half weeks ago, so her iron studies are not done this time. I assured the patient nothing will happen at this time, and ferritin could be falsely high because it is an acute phase reactant. I will see her after she comes from her winter trip in January 2019 with CBC, chemistry panel, and iron studies with ferritin. 2. Thyroid nodules due to nodular goiter as per cytology by ultrasound biopsy of the thyroid nodules done February 07, 2018, status post thyroidectomy done June 2018. 3. Fibromyalgia. 4. Osteoporosis. 5. Hypertension, on treatment.. PLAN 1. Continue followup. 2. Patient to return in January 2019 with CBC, chem panel, and iron studies with ferritin. 3. 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 5. Patient to contact us for any new concern or complaints. MTDD
[2018-08-14] MEDS ORDERED: LEVO75TA73 PO (11:23)
== END 2018-08-20 09:12 | disposition home or self-care (01) ==
LOC: ONC 09:22
PROVIDERS: ATTEND Internal Medicine Hematology
DX: E83.10 Disorder of iron metabolism, unspecified (principal); E04.2 Nontoxic multinodular goiter; M79.7 Fibromyalgia; M81.0 Age-related osteoporosis without current pathological fracture; I10 Essential (primary) hypertension; Z87.891 Personal history of nicotine dependence; R11.0 Nausea; R06.02 Shortness of breath; R10.13 Epigastric pain; R53.1 Weakness; R53.83 Other fatigue
CPT/HCPCS: 99212

== ENCOUNTER → 2019-01-23 | Outpatient (CLI) | payer MEDICARE, OTHER ==
[2018-07-07 13:54] VITALS: BMI 18.3
[~2019-01-23] MED LIST changes: +ALBU2.5V36 INH; +FLUT16SP19 NS; +LEVO50TA86 PO; +LEVO75TA73 PO; -LOSA100T69 PO; +LOSA100T75 PO; +PRED20TA6 PO
--- NOTE | 2019-01-23 15:19 | RADIOLOGY IMAGING REPORT ---
FACILITY: [facility] [place] PATIENT NAME: Nelly Chisholm : 1945 MR: [id number] V: [id number] EXAM DATE: ORDERING PHYSICIAN: RESHMA MOCK TECHNOLOGIST: Location: [facility] [place], [place] Patient: Nelly Chisholm : 1945 Visit/Account:[id number] Date of Sevice: 01/23/2019 CHEST PA LAT HISTORY: Cough. Shortness of breath. COMPARISON: 06/13/2018 FINDINGS: Cardiomediastinal contours: Normal Lungs and pleura: Normal Bones/soft tissues: Mid thoracic vertebral augmentation. Bones are demineralized. Moderate kyphosis . Other findings: None significant IMPRESSION: 1. No acute cardiopulmonary disease. No change. Report Dictated By: Harmeet Hughes MD at 01/23/2019 3:10 PM Report E-Signed By: Harmeet Hughes MD at 01/23/2019 3:11 PM WSN:[email or web address]
== END ==
LOC: RAD 14:36
PROVIDERS: ATTEND Nurse Practitioner Primary Care
DX: R05 Cough (principal)
CPT/HCPCS: 71046

== ENCOUNTER 2019-01-31 08:00 | Outpatient (RCR) | payer MEDICARE, OTHER ==
[2018-07-07 13:54] VITALS: BMI 18.3
[2019-01-31 15:41] LABS: PLATELET COUNT, AUTOMATED 209 K/uL (150-450)
--- NOTE | 2019-02-04 15:50 | NUR ---
Called patient and reviewed lab results from 01/31/19. Patient verbalized understanding.
[2019-02-05] MEDS ORDERED: VALS160T22 PO (14:55)
[2019-02-05] MEDS ORDERED: CLON-331 PO (14:55)
[2019-02-05] MEDS ORDERED: CELE-1 PO (14:55)
[2019-02-05] MEDS ORDERED: TRAM-420 PO (14:55)
[2019-02-05] MEDS ORDERED: OMEP-137 PO (14:58)
== END 2019-03-13 15:39 | disposition home or self-care (01) ==
LOC: ONC 08:00
PROVIDERS: ATTEND Internal Medicine Hematology
DX: R79.89 Other specified abnormal findings of blood chemistry (principal); E04.1 Nontoxic single thyroid nodule; E83.119 Hemochromatosis, unspecified
CPT/HCPCS: 36415; 82728; 83540; 83550; 85025

== ENCOUNTER → 2019-02-05 | Outpatient (CLI) | payer MEDICARE, OTHER ==
[2018-07-07 13:54] VITALS: BMI 18.3
[~2019-02-05] MED LIST changes: +OMEP-137 PO
== END ==
LOC: LAB 15:18
PROVIDERS: ATTEND Internal Medicine
DX: N39.0 Urinary tract infection, site not specified (principal)
CPT/HCPCS: 81001

== ENCOUNTER → 2019-03-19 | Outpatient (CLI) | payer MEDICARE, OTHER ==
[2018-07-07 13:54] VITALS: BMI 18.3
[2019-03-19 12:38] LABS: PLATELET COUNT, AUTOMATED 188 K/uL (150-450)
== END ==
LOC: LAB 12:08
PROVIDERS: ATTEND Surgery
DX: R10.9 Unspecified abdominal pain (principal); E05.90 Thyrotoxicosis, unspecified without thyrotoxic crisis or storm; I10 Essential (primary) hypertension
CPT/HCPCS: 36415; 82310; 82374; 82435; 82565; 82947; 84132; 84295; 84443; 84520; 85025

== ENCOUNTER → 2019-03-25 | Outpatient (CLI) | payer MEDICARE, OTHER ==
[2018-07-07 13:54] VITALS: BMI 18.3
[~2019-03-25] MED LIST changes: +BARIUM SULFATE 176 GM BTL PO ONE; +BARIUM SULFATE 340 GM POWD ONE
--- NOTE | 2019-03-25 14:28 | RADIOLOGY IMAGING REPORT ---
FACILITY: [facility] PATIENT NAME: Nelly Chisholm : 1945 MR: [id number] V: [id number] EXAM DATE: ORDERING PHYSICIAN: BROCK ODONNELL TECHNOLOGIST: Location: [facility] Patient: Nelly Chisholm : 1945 Visit/Account:[id number] Date of Sevice: 03/25/2019 CT ABDOMEN PELVIS W/O CON HISTORY: Abdomen pain, dysphasia, acid reflux TECHNIQUE: Axial images acquired through the abdomen/pelvis. Coronal and sagittal reformatting also performed. No IV contrast administered.Dose Lowering Technique One of the following dose optimization techniques was utilized in the performance of this exam: Autom ated exposure control; adjustment of the mA and/or kV according to the patient's size; or use of an i terative reconstruction technique. Specific details can be referenced in the facility's radiology C T exam operational policy. COMPARISON: March 17, 2018 there is linear scarring in the lung bases FINDINGS: Visualized lung bases: There is linear scarring in the lung bases Hepatobiliary: There is a 1 cm cyst in the medial segment left lobe the liver that appears unchanged Spleen: Negative Adrenals: There is mild adrenal thickening that remain stable Pancreas: Negative. Kidneys ureters and bladder: There is 1 mm nonobstructing calculus upper pole calyx of the right kidn ey Genitalia: The uterus is either severely atrophic or surgically absent GI: There is a moderate amount of fecal material throughout colon which can be seen with constipatio n Vessels/spaces/nodes: There are moderate atherosclerotic calcifications the abdomen and pelvis Bones/soft tissues: There is an expansile fluid density within the sacral canal at S3 which may repr esent a Tarlov cyst or incidental intrasacral meningocele Additional findings: None pertinent. IMPRESSION: 1 mm nonobstructing calculus upper pole calyx of the right kidney Moderate amount of fecal material throughout colon which can be seen with constipation Additional chronic findings as described Report Dictated By: Carmen Vivas MD at 03/25/2019 1:59 PM Report E-Signed By: Carmen Vivas MD at 03/25/2019 2:22 PM WSN:[email or web address]
--- NOTE | 2019-03-26 11:22 | RADIOLOGY IMAGING REPORT ---
FACILITY: [facility] PATIENT NAME: Nelly Chisholm : 1945 MR: [id number] V: [id number] EXAM DATE: ORDERING PHYSICIAN: BROCK ODONNELL TECHNOLOGIST: Location: [facility] Patient: Nelly Chisholm : 1945 Visit/Account:[id number] Date of Sevice: 03/26/2019 Exam type: XR UPPER GI SERIES W/O KUB History: See Dx Comparison: March 14, 2018. Findings: Double contrast esophagram was performed with thick and thin barium and air contrast there is a high- grade narrowing of the distal esophagus with failure of passage of a 12 mm barium tablet. A large am ount of gastroesophageal reflux was observed. Mild narrowing in the cervical esophagus also noted. Tertiary waves were also noted within the esophagus. No abnormality of the stomach, duodenal bulb or duodenal C-loop was seen. The dose area product was 386.94 micro-Tobias per meter squared IMPRESSION: 1. Large amount of gastroesophageal reflux with high-grade narrowing of the distal esophagus. There is failure of passage of a 12 mm barium tablet. Also noted is mild narrowing of the cervical esopha yanet. Tertiary waves of the esophagus were also present No abnormality of the stomach, duodenal bulb or duodenal C-loop was seen Report Dictated By: Carmen Vivas MD at 03/26/2019 11:09 AM Report E-Signed By: Carmen Vivas MD at 03/26/2019 11:15 AM WSN:[email or web address]
== END ==
LOC: CT 00:22
PROVIDERS: ATTEND Surgery
DX: K21.9 Gastro-esophageal reflux disease without esophagitis (principal); N20.0 Calculus of kidney
CPT/HCPCS: 74176

== ENCOUNTER 2019-05-01 02:02 | Day surgery (SDC) | payer MEDICARE, OTHER ==
[2018-07-07 13:54] VITALS: Ht 157.5 cm; Wt 49.0 kg
[2019-05-01] VITALS (7 sets, daily range): BP systolic 135–168; BP diastolic 81–99
[~2019-05-01] VITALS: Ht 157.5 cm; Wt 49.0 kg
[~2019-05-01 02:02] MED LIST changes: +ALOE25CA PO; -BARIUM SULFATE 176 GM BTL PO ONE; -BARIUM SULFATE 340 GM POWD ONE; +L.AC1CAP6 PO
[2019-05-01] MEDS ORDERED: LIDOCAINE/SOD BICARB 8.4% SYR ID ONE (06:30)
[2019-05-01] MEDS ORDERED: NORMOSOL R SOLN(*) 1000 ML BAG 1,000 ML IV PRN (06:30)
[2019-05-01] MEDS ORDERED: PROPOFOL EMUL(*) 10MG/ML 20 ML 40 ML ONE (06:57)
--- NOTE | 2019-05-01 08:05 | NUR ---
Patient supplemental oxygen reduced to 2 L/min. patient tolerating well. saturation at 98% with no increase in pulse or respirations.
--- NOTE | 2019-05-01 08:08 | Short(Outpt) Discharge Summary ---
Discharge Summary Reason for Hosp/Final Diag: (1) Dysphagia Status: Chronic Hospital Course & Plan: EGD with dilation completed without problems. Departure Discharge to: Home, Self Care Discharge Instructions Home Meds Active Scripts Tramadol Hcl (TRAMADOL HCL) 50 Mg Tablet, 1 TAB PO Q6H PRN for pain, #120 TAB 5 Refills Prov:GRACIE QUEVEDO MD 02/05/19 Clonazepam (CLONAZEPAM) 0.5 Mg Tablet, 0.5 MG PO BID PRN for anxiety, #60 5 Refills Prov:GRACIE QUEVEDO MD 02/05/19 Valsartan (DIOVAN) 160 Mg Tablet, 160 MG PO QDAY, #30 TAB 9 Refills Prov:GRACIE QUEVEDO MD 02/05/19 Celecoxib (CELEBREX) 200 Mg Capsule, 200 MG PO QDAY PRN for pain, #30 CAPSULE 9 Refills Prov:GRACIE QUEVEDO MD 02/05/19 Levothyroxine Sodium (LEVOTHYROXINE SODIUM) 75 Mcg Tablet, 1 TAB PO QDAY, #60 TAB 3 Refills Prov:BROCK ODONNELL MD 08/14/18 Docusate Sodium (DOCUSATE SODIUM) 100 Mg Capsule, 1 CAP PO BID PRN for CONSTIPATION, #30 CAPSULE 0 Refills Prov:GRACIE QUEVEDO MD 07/26/18 Reported Medications L.acidoph & Paracasei,B.lactis (Probiotic) 1 Each Capsule, 1 CAPSULE PO DAILY 04/24/19 Aloe Vera (ALOE VERA) 25 Mg Capsule, 25 MG PO QDAY, CAPSULE 04/01/19 Omeprazole (OMEPRAZOLE) 20 Mg Tablet.dr, 20 MG PO QDAY, TAB 02/05/19 Calcium Carbonate/Vitamin D3 (CALCIUM + VITAMIN D TABLET) 1 Each Tablet, 1 EACH PO 01/29/18 Cholecalciferol (Vitamin D3) (VITAMIN D3) 1,000 Unit Tablet, 2000 UNIT PO, TAB 01/29/18 Discontinued Scripts Albuterol Sulfate 0.083% (ALBUTEROL SULFATE 0.083%) 2.5 Mg/3 Ml Vial.neb, 2.5 MG INH Q4-6H PRN for COUGH, #1 BOX 0 Refills Prov:RESHMA MOCK DNP, MACHINIST [employer] 01/23/19 Diet: Regular Activity: As Tolerated Special Instructions: Your upper endoscopy was completed without problems and I dilated your esophagus. My office will call you in the next day or two to schedule a follow up appointment to see how your feeling and determine if anything else needs to be done. Problem Qualifiers (1) Dysphagia: Dysphagia type: esophageal phase Qualified Codes: R13.10 - Dysphagia, unspecified BROCK ODONNELL MD May 01, 2019 08:08
--- NOTE | 2019-05-01 08:25 | NUR ---
patient supplemental oxygen removed. patient tolerating well. oxygen sat at 98% with no increase to pulse or respirations. will continue to monitor.
--- NOTE | 2019-05-01 08:38 | NUR ---
Patient is a little dizzy during orthostatic vitals. was instructed to sit down and take some deep breaths until she is ready to get up again.
--- NOTE | 2019-05-01 08:45 | NUR ---
orthostatic vitals complete. tolerated well on second standing attempt. see vital signs for report.
--- NOTE | 2019-05-01 09:05 | NUR ---
patient up to bathroom. able to void bladder. no dizziness or light headedness when walking.
--- NOTE | 2019-05-01 09:20 | NUR ---
patient walked out with .
== END 2019-05-01 09:15 | disposition home or self-care (01) ==
LOC: OR 02:02
PROVIDERS: ATTEND Surgery
DX: R13.10 Dysphagia, unspecified (principal); I10 Essential (primary) hypertension; E78.5 Hyperlipidemia, unspecified; J44.9 Chronic obstructive pulmonary disease, unspecified; M79.7 Fibromyalgia; R10.13 Epigastric pain; K59.00 Constipation, unspecified; R11.10 Vomiting, unspecified
CPT/HCPCS: 36415; 43248; 82728; 84443; J2704; C1769